=== PATIENT | female | born 1945 | race Caucasian/White ===

== ENCOUNTER 2018-12-31 20:01 | Emergency (ER) | payer OTHER, BC ==
--- NOTE | 2018-12-31 22:00 | RAD REPORT ---
EXAM DESCRIPTION: RAD - Hand Left 3 View - 12/31/2018 9:36 pm CLINICAL HISTORY: PAIN COMPARISON: <Comparisons> FINDINGS: Dislocation is noted involving the PIP joint of the fifth finger. No fracture is seen.
--- NOTE | 2018-12-31 22:02 | RAD REPORT ---
EXAM DESCRIPTION: RAD - Hand Right 3 View - 12/31/2018 9:34 pm CLINICAL HISTORY: PAIN COMPARISON: No comparisons FINDINGS: Radiocarpal arthritic changes are present. No fracture is identified.
[2018-12-31] MEDS ORDERED: LIDOCAINE 1% MPF 5 ML VIAL ONE (22:21)
[2018-12-31] MEDS ORDERED: BUPIVACAINE 0.5% PF 10 ML VIAL ONE (22:21)
[2018-12-31] MEDS ORDERED: TETANUS & DIPHTHERIA TOX,ADULT 0.5 ML VIAL ONE (23:47)
--- NOTE | 2018-12-31 23:54 | ER ---
Nurse's Notes [facility] Name: Mona Camarillo Age: 73 yrs Sex: Female : 1945 Arrival Date: 12/31/2018 Time: 20:07 Bed 28 Private MD: Diagnosis: Laceration without foreign body of left little finger without damage to nail;Fall on same level from slipping, tripping and stumbling;Dislocation of proximal interphalangeal joint of left little finger;Contusion of unspecified part of head Presentation: 12/31 20:15 Presenting complaint: Patient states: tripped and fell. pt c/o pain to left pinky ak1 finger and left hand. swelling noted to left pinky. Transition of care: patient was not received from another setting of care. Onset of symptoms was December 31, 2018. Risk Assessment: Do you want to hurt yourself or someone else? Patient reports no desire to harm self or others. Initial Sepsis Screen: Does the patient meet any 2 criteria? No. Patient's initial sepsis screen is negative. Does the patient have a suspected source of infection? No. Patient's initial sepsis screen is negative. Note pt in lobby restroom at time of name called. Care prior to arrival: None. 20:15 Method Of Arrival: Ambulatory ak1 20:15 Acuity: SIDNEY 3 ak1 Historical: - Allergies: 20:22 Codeine; ak1 - Home Meds: 20:22 Aspirin Oral [Active]; Plavix Oral [Active]; Xarelto oral oral [Active]; Metformin Oral ak1 [Active]; Metoprolol Tartrate Oral [Active]; Lisinopril Oral [Active]; pravastatin oral oral [Active]; - PMHx: 20:22 Cancer; Hypertension; ak1 - PSHx: 20:22 left knee replacement; Heart stents; rhinoplasty; Carpal Tunnel Repair; ak1 - Immunization history:: Adult Immunizations unknown. - Social history:: Smoking status: Patient/guardian denies using tobacco. - Ebola Screening: : No symptoms or risks identified at this time. Screenin:14 Abuse screen: Denies threats or abuse. Denies injuries from another. Nutritional ca1 screening: No deficits noted. Tuberculosis screening: No symptoms or risk factors identified. Fall Risk Fall in past 12 months (25 points). IV access (20 points). Assessment: 21:14 General: Appears in no apparent distress. comfortable, Behavior is calm, cooperative, ca1 appropriate for age. General: Pt c/o pain at left cheek, forehead. related to fall 09/19. Pt refuses pain meds at this time. Pt also reported that she takes Plavix, Xarelto and Aspirin. Notified provider. Pain: Complains of pain in left hand, left pinky Pain does not radiate. Pain currently is 7 out of 10 on a pain scale. Neuro: Level of Consciousness is awake, alert, obeys commands, Oriented to person, place, time, situation. Cardiovascular: Heart tones S1 S2 present Capillary refill < 3 seconds Patient's skin is warm and dry. Respiratory: Airway is patent Respiratory effort is even, unlabored, Respiratory pattern is regular, symmetrical, Breath sounds are clear bilaterally. GI: Abdomen is round non-distended, Bowel sounds present X 4 quads. Abd is soft and non tender X 4 quads. : No deficits noted. No signs and/or symptoms were reported regarding the genitourinary system. EENT: No deficits noted. No signs and/or symptoms were reported regarding the EENT system. Derm: Skin is intact, is healthy with good turgor, Skin is pink, warm \T\ dry. Musculoskeletal: Circulation, motion, and sensation intact. Capillary refill < 3 seconds, Range of motion: intact in all extremities. 21:55 Reassessment: Patient appears in no apparent distress at this time. Patient and/or ca1 family updated on plan of care and expected duration. Pain level reassessed. Patient is alert, oriented x 3, equal unlabored respirations, skin warm/dry/pink. 21:56 Reassessment: Notified provide re laceration on L little finger. ca1 22:50 Reassessment: Patient appears in no apparent distress at this time. Patient and/or ca1 family updated on plan of care and expected duration. Pain level reassessed. Patient is alert, oriented x 3, equal unlabored respirations, skin warm/dry/pink. 23:55 Reassessment: Patient appears in no apparent distress at this time. Patient and/or ca1 family updated on plan of care and expected duration. Pain level reassessed. Patient is alert, oriented x 3, equal unlabored respirations, skin warm/dry/pink. Vital Signs: 20:22 BP 132 / 65; Pulse 77; Resp 16; Temp 98; Pulse Ox 98% ; Weight 88.9 kg (R); Height 5 ak1 ft. 0 in. (152.40 cm) (R); Pain 5/10; 21:14 BP 125 / 59; Pulse 72; Resp 16 S; Pulse Ox 99% on R/A; ca1 21:55 BP 122 / 59; Pulse 70; Resp 16 S; Pulse Ox 99% on R/A; ca1 22:30 BP 120 / 57; Pulse 70; Resp 16 S; Pulse Ox 99% on R/A; ca1 23:24 BP 119 / 74; Pulse 72; Resp 15 S; Pulse Ox 99% on R/A; ca1 01/01 00:08 BP 112 / 55; Pulse 71; Resp 17 S; Temp 98(O); Pulse Ox 98% on R/A; ca1 12/31 20:22 Body Mass Index 38.28 (88.90 kg, 152.40 cm) ak1 ED Course: 12/31 20:07 Patient arrived in ED. es 20:20 Triage completed. ak1 20:22 Arm band placed on Patient placed in waiting room, Patient notified of wait time. ak1 20:25 Castro Michel PA is PHCP. cp 20:25 Jogre Narvaez MD is Attending Physician. cp 20:29 Sarah Herring, TOBI is Primary Nurse. ca1 21:14 Patient has correct armband on for positive identification. Bed in low position. Call ca1 light in reach. Side rails up X2. Pulse ox on. NIBP on. Warm blanket given. 21:14 No provider procedures requiring assistance completed. ca1 21:33 CT Head C Spine In Process Unspecified. EDMS 21:34 XRAY Hand RIGHT 3 View In Process Unspecified. EDMS 21:34 XRAY Hand LEFT 3 View In Process Unspecified. EDMS 21:55 Wound care: to laceration located on palmar aspect of middle phalanx of left little ca1 finger was cleaned with Betadine, irrigated with normal saline, ice pack applied. Patient tolerated well. 23:00 Assist provider with laceration repair on palmar aspect of middle phalanx of left ca1 little finger that was 2.5 cm. or less using sutures. Set up tray. Performed by Castro GERONIMO Dressed with 4X4s, Patient tolerated well. Assist provider with nerve block (digital) of left hand Set up for procedure. Performed by Castro GERONIMO Patient tolerated well. 23:45 X-ray completed. Portable x-ray completed in exam room. Patient tolerated procedure kw well. 23:47 XRAY Hand LEFT 2 View In Process Unspecified. EDMS 23:51 Gaudencio Moreau MD is Referral Physician. cirilo 01/01 00:00 Aluminum finger splint applied to dorsal aspect of distal phalanx of left little ca1 finger, dorsal aspect of middle phalanx of left little finger, dorsal aspect of proximal phalanx of left little finger, dorsum of left hand, palmar aspect of distal phalanx of left little finger, palmar aspect of middle phalanx of left little finger, palmar aspect of proximal phalanx of left little finger, inner aspect of left palm and left little fingernail. 00:06 Patient did not have IV access during this emergency room visit. ca1 Administered Medications: 12/31 23:10 Drug: Lidocaine (1 %) 5 ml {Note: by PA. Quan} Volume: 5 ml; Route: Infiltration;ca1 23:11 Drug: Marcaine (0.5 %) 5 ml {Note: PA. Quan} Volume: 10 ml; Route: Infiltration; ca1 23:15 Drug: Tetanus-Diphtheria Toxoid Adult 0.5 ml {Nail Specialist: [employer]. Exp: ca1 09/01/2020. Lot #: [id number]. } Route: IM; Site: left deltoid; 01/01 00:04 Follow up: Response: No adverse reaction ca1 Output: 12/31 20:50 Urine: 120ml; Total: 120ml. ca1 Outcome: 23:53 Discharge ordered by . cp 01/01 00:24 Discharged to home via wheelchair. ca1 Condition: stable Discharge instructions given to patient, Instructed on discharge instructions, follow up and referral plans. wound care, Demonstrated understanding of instructions, follow-up care, medications. 00:25 Patient left the ED. ca1 Signatures: Dispatcher [employer] EDMS Ava Flowers Kimberlee kw Krenek, Amber, RN RN ak1 Castro Michel PA PA cp Acob, Cheryl, RN RN ca1 Corrections: (The following items were deleted from the chart) 12/31 20: 20:15 Acuity: SIDNEY 4 ak1 ak1 01/01 00:01 00:01 Tetanus-Diphtheria Toxoid Adult 0.5 ml IM in left deltoid Nail Specialist: APS [employer] Lot: [id number] Exp: 09/01/2020 ca1
--- NOTE | 2018-12-31 23:54 | EDPHYS ---
Physician Documentation [facility] Name: Mona Camarillo Age: 73 yrs Sex: Female : 1945 Arrival Date: 12/31/2018 Time: 20:07 Bed 28 Private MD: ED Physician Jorge Narvaez HPI: 12/31 21:10 This 73 yrs old Female presents to ER via Ambulatory with complaints of fall. cp 21:10 Details of fall: The patient fell from an upright position, while walking, and struck a cp concrete surface. 21:10 Onset: The symptoms/episode began/occurred just prior to arrival. Associated injuries: cp The patient sustained injury to the head, contusion, right hand and left hand. Patient reports trip and fall causing her to injure both hands and strike face against ground. Denies LOC. Patient reports she takes Xeralto. Historical: - Allergies: 20:22 Codeine; ak1 - Home Meds: 20:22 Aspirin Oral [Active]; Plavix Oral [Active]; Xarelto oral oral [Active]; Metformin Oral ak1 [Active]; Metoprolol Tartrate Oral [Active]; Lisinopril Oral [Active]; pravastatin oral oral [Active]; - PMHx: 20:22 Cancer; Hypertension; ak1 - PSHx: 20:22 left knee replacement; Heart stents; rhinoplasty; Carpal Tunnel Repair; ak1 - Immunization history:: Adult Immunizations unknown. - Social history:: Smoking status: Patient/guardian denies using tobacco. - Ebola Screening: : No symptoms or risks identified at this time. ROS: 21:20 Constitutional: Negative for body aches, chills, fever, poor PO intake. cp 21:20 Neck: Negative for stiffness. cp 21:20 Cardiovascular: Negative for chest pain, palpitations. 21:20 Respiratory: Negative for cough, shortness of breath, wheezing. 21:20 Abdomen/GI: Negative for nausea and vomiting. 21:20 MS/extremity: Positive for ecchymosis, pain, swelling, tenderness, of the right hand and left hand. 21:20 Neuro: Negative for altered mental status, headache, loss of consciousness, weakness. 21:20 All other systems are negative. Exam: 21:30 Constitutional: The patient appears in no acute distress, alert, awake, cp non-diaphoretic, non-toxic, well developed, well nourished. 21:30 Head/face: Noted is abrasion(s), that are mild, of the left zygomatic area. cp 21:30 Eyes: Periorbital structures: appear normal, Pupils: equal, round, and reactive to light and accomodation, Extraocular movements: intact throughout, Conjunctiva: normal, no exudate, no injection, Lids and lashes: appear normal, bilaterally. 21:30 ENT: External ear(s): are unremarkable, Ear canal(s): are normal, clear, TM's: dullness, bilaterally, Nose: is normal, Mouth: Lips: moist, Oral mucosa: pink and intact, moist, Posterior pharynx: is normal, airway is patent, no erythema, no exudate. 21:30 Neck: C-spine: vertebral tenderness, is not appreciated, crepitus, is not appreciated, ROM/movement: is normal, is supple, without pain, no range of motions limitations, no meningismus, no nuchal rigidity. 21:30 Chest/axilla: Inspection: normal, Palpation: is normal, no crepitus, no tenderness. 21:30 Cardiovascular: Rate: normal, Rhythm: regular, Edema: is not appreciated, JVD: is not appreciated. 21:30 Respiratory: the patient does not display signs of respiratory distress, Respirations: normal, no use of accessory muscles, no retractions, no splinting, no tachypnea, labored breathing, is not present, Breath sounds: are clear throughout, no decreased breath sounds, no stridor, no wheezing. 21:30 Abdomen/GI: Inspection: abdomen appears normal, Palpation: abdomen is soft and non-tender, in all quadrants. 21:30 Back: pain, is absent, ROM is normal. 21:30 Skin: injury, laceration(s), of the palmar aspect of middle phalanx of left little finger, that can be described as clean, linear, with mild bleeding, noted deformity of left PIP joint small finger. 21:30 Neuro: Orientation: to person, place \T\ time. Mentation: is normal, Cerebellar function: is grossly normal, Motor: moves all fours, strength is normal, Sensation: is normal. Vital Signs: 20:22 BP 132 / 65; Pulse 77; Resp 16; Temp 98; Pulse Ox 98% ; Weight 88.9 kg (R); Height 5 ak1 ft. 0 in. (152.40 cm) (R); Pain 5/10; 21:14 BP 125 / 59; Pulse 72; Resp 16 S; Pulse Ox 99% on R/A; ca1 21:55 BP 122 / 59; Pulse 70; Resp 16 S; Pulse Ox 99% on R/A; ca1 22:30 BP 120 / 57; Pulse 70; Resp 16 S; Pulse Ox 99% on R/A; ca1 23:24 BP 119 / 74; Pulse 72; Resp 15 S; Pulse Ox 99% on R/A; ca1 01/01 00:08 BP 112 / 55; Pulse 71; Resp 17 S; Temp 98(O); Pulse Ox 98% on R/A; ca1 12/31 20:22 Body Mass Index 38.28 (88.90 kg, 152.40 cm) ak1 Procedures: 12/31 23:50 Reduction: of the PIP joint left small finger, using manipulation, Immobilized with cp sugar tong finger splint. Patient tolerated well. Post reduction film - reveals improved alignment. Laceration: 23:50 Wound Repair of 2.5cm ( 1.0in ) subcutaneous laceration to palmar aspect of middle cp phalanx of left little finger. Linear shaped.. Distal neuro/vascular/tendon intact. Anesthesia: Digital block administered with 6 mls of Lido/Marcaine. Wound prep: Moderate cleansing by me, Wound irrigation by me. Skin closed with 5 5-0 Prolene using interrupted sutures and sterile technique. Dressed with Bacitracin, tube gauze. Patient tolerated well. MDM: 21:02 Patient medically screened. cp 22:00 Differential diagnosis: closed head injury, fracture, multiple trauma. cp 23:49 Test interpretation: by ED physician or midlevel provider: repeat xrays of left hand cp show relocation of proximal interphalangeal joint left small finger. 23:52 Data reviewed: vital signs, nurses notes, radiologic studies, CT scan, plain films, and cp as a result, I will discharge patient. 23:53 Counseling: I had a detailed discussion with the patient and/or guardian regarding: the cp historical points, exam findings, and any diagnostic results supporting the discharge/admit diagnosis, radiology results, the need for outpatient follow up, a hand specialist, to return to the emergency department if symptoms worsen or persist or if there are any questions or concerns that arise at home. 23:53 Response to treatment: the patient's symptoms have markedly improved after treatment, cp and as a result, I will discharge patient. 12/31 21:02 Order name: CT Head C Spine cp 12/31 21:02 Order name: XRAY Hand RIGHT 3 View; Complete Time: 22:05 cp 12/31 21:02 Order name: XRAY Hand LEFT 3 View; Complete Time: 22:05 cp 12/31 23:10 Order name: XRAY Hand LEFT 2 View cp 12/31 21:24 Order name: Wound Care: please clean and irrigate wounds; Complete Time: 21:56 cp 12/31 22:05 Order name: Dressing - Wound; Complete Time: 22:06 cp 12/31 22:05 Order name: Gloves, Sterile; Complete Time: 22:06 cp 12/31 22:05 Order name: Setup Suture Tray; Complete Time: 22:06 cp 12/31 23:10 Order name: Wound dressing; Complete Time: 00:00 cp 12/31 23:10 Order name: Finger Splint; Complete Time: 00:00 cp Administered Medications: 23:10 Drug: Lidocaine (1 %) 5 ml {Note: by Castro Michel PA.} Volume: 5 ml; Route: Infiltration;ca1 23:11 Drug: Marcaine (0.5 %) 5 ml {Note: Castro Michel, PA.} Volume: 10 ml; Route: Infiltration; ca1 23:15 Drug: Tetanus-Diphtheria Toxoid Adult 0.5 ml {Parking Worker: [employer]. Exp: ca1 09/01/2020. Lot #: [id number]. } Route: IM; Site: left deltoid; 01/01 00:04 Follow up: Response: No adverse reaction ca1 Disposition: 01:00 Chart complete. cp 04:18 Co-signature as Attending Physician, Jorge Narvaez MD I agree with the assessment and tw4 plan of care. Disposition: 12/31/18 23:53 Discharged to Home. Impression: Laceration without foreign body of left little finger without damage to nail, Fall on same level from slipping, tripping and stumbling, Dislocation of proximal interphalangeal joint of left little finger, Contusion of unspecified part of head. - Condition is Stable. - Discharge Instructions: Finger or Thumb Dislocation, Head Injury, Adult, Laceration Care, Adult. - Medication Reconciliation Form, Thank You Letter, Antibiotic Education, Prescription Opioid Use form. - Follow up: Gaudencio Moreau MD; When: 2 - 3 days; Reason: finger dislocation. - Problem is new. - Symptoms have improved. Signatures: Dispatcher [employer] EDMS Bernice Voss RN RN ak1 Castro Michel PA PA cp Wadley, Terrence, MD MD tw4 Sarah Herring RN RN ca1 Corrections: (The following items were deleted from the chart) 12/31 23:54 23:53 12/31/2018 23:53 Discharged to Home. Impression: Laceration without foreign body cp of left little finger without damage to nail; Fall on same level from slipping, tripping and stumbling; Dislocation of proximal interphalangeal joint of left little finger. Condition is Stable. Forms are Medication Reconciliation Form, Thank You Letter, Antibiotic Education, Prescription Opioid Use. Follow up: Gaudencio Moreau; When: 2 - 3 days; Reason: finger dislocation. Problem is new. Symptoms have improved. cp 01/01 00:25 12/31 23:54 12/31/2018 23:53 Discharged to Home. Impression: Laceration without foreign ca1 body of left little finger without damage to nail; Fall on same level from slipping, tripping and stumbling; Dislocation of proximal interphalangeal joint of left little finger; Contusion of unspecified part of head. Condition is Stable. Discharge Instructions: Finger or Thumb Dislocation, Head Injury, Adult, Laceration Care, Adult. Forms are Medication Reconciliation Form, Thank You Letter, Antibiotic Education, Prescription Opioid Use. Follow up: Gaudencio Moreau; When: 2 - 3 days; Reason: finger dislocation. Problem is new. Symptoms have improved. cp
[2019-01-01 02:34] VITALS: TEMP 98
[2019-01-01 02:42] VITALS: BP 112/55; O2SAT 98
--- NOTE | 2019-01-01 08:09 | RAD REPORT ---
EXAM DESCRIPTION: RAD - Hand Left 2 View - 12/31/2018 11:46 pm CLINICAL HISTORY: finger relocation Pain and swelling COMPARISON: Hand Left 3 View dated 12/31/2018 FINDINGS: The previously noted dislocation of the PIP joint of the fifth finger has been reduced. Th e bones are osteopenic. Small bony fragment seen adjacent to the distal aspect of the proximal phalan x the fifth finger may represent a small avulsion fracture.
--- NOTE | 2019-01-01 11:04 | RAD REPORT ---
EXAM DESCRIPTION: Head C Spine Mpr Wo Con CLINICAL HISTORY: 73 years Female, fall COMPARISON: None. TECHNIQUE: 1. Head CT without contrast: 5 mm axial images were obtained along with 3 mm coronal and sagittal reformatted images. 2. CT scan cervical spine without contrast: 2 mm axial images were obtained along with 2 mm coronal a nd sagittal reformatted images. This exam was performed according to our departmental dose-optimization program, which includes autom ated exposure control, adjustment of the mA and/or kV according to patient size and/or use of iterati ve reconstruction technique. FINDINGS: HEAD CT: No acute abnormal extracerebral fluid collections are demonstrated. The cortical sulci, ventricles and cisterns are within normal limits. There are no areas of altered attenuation to suggest acute hemorrhage, infarction, or mass lesion. There is atherosclerosis about the carotid arteries and vertebral arteries bilaterally. There is evidence of previous sinus surgery. There are mucoceles identified involving the right mid and posterior ethmoid air cells and the left p osterior ethmoid air cell. The mastoid air cells are clear. CT CERVICAL SPINE: BONY STRUCTURES: C1: No fracture or subluxation. There is severe degenerative changes about the atlantodental articul ation. There are peridental soft tissue calcifications suggestive of calcium pyrophosphate deposition diseas e. C2: No fracture or subluxation. C3: No fracture or subluxation. There is mild facet arthropathy on the left at C3 or C4. C4: No fracture or subluxation. There is mild bilateral facet arthropathy at C4-C5. C5: No fracture or subluxation. There is severe degenerative disc disease and mild bilateral facet a rthropathy at C5-C6. C6: No fracture or subluxation. There is severe degenerative disc disease at C6-C7. C7: No fracture or subluxation. T1: No fracture or subluxation. There is a hemangioma within the T1 vertebral body which measures 1. 0 x 1.2 cm. SOFT TISSUES: There is gross enlargement of the right thyroid lobe. A mass lesion is suspected. Further characteriz ation with a nonemergent ultrasound recommended. There is atherosclerotic disease about the right carotid artery. LUNG APICES: Unremarkable. IMPRESSION: 1. HEAD CT: No acute intracranial abnormality. Paranasal sinus disease. 2. CT CERVICAL SPINE: No fracture. Degenerative changes. Right thyroid lobe enlargement, probable mas s. Thyroid ultrasound evaluation recommended. Electronically signed by: Manish Mcnamara MD 12/31/2018 9:51 PM CDT Due to temporary technical issues with the PACS/Fluency reporting system, reports are being signed by the in house radiologist as a courtesy to ensure prompt reporting. The interpreting radiologist is f ully responsible for the content of the report.
== END 2019-01-01 00:25 | disposition home or self-care (01) ==
LOC: ER 20:01
PROC: 0JQK0ZZ Repair Left Hand Subcutaneous Tissue and Fascia, Open Approach (ICD-10-PCS; principal; 2019-01-01)
PROC: 0RSXXZZ Reposition Left Finger Phalangeal Joint, External Approach (ICD-10-PCS; 2019-01-01)
DX: S61.217A Laceration without foreign body of left little finger without damage to nail, initial encounter (principal); S63.287A Dislocation of proximal interphalangeal joint of left little finger, initial encounter; S00.93XA Contusion of unspecified part of head, initial encounter; W01.198A Fall on same level from slipping, tripping and stumbling with subsequent striking against other object, initial encounter; Y93.9 Activity, unspecified; Y92.9 Unspecified place or not applicable; Z23 Encounter for immunization; Z79.01 Long term (current) use of anticoagulants; Z79.82 Long term (current) use of aspirin; Z88.5 Allergy status to narcotic agent; Z95.818 Presence of other cardiac implants and grafts; I10 Essential (primary) hypertension
CPT/HCPCS: 64450; 70450; 72125; 90471; 90714; 99284

== ENCOUNTER 2020-01-03 15:06 | Inpatient (IN) | payer OTHER, BC ==
--- OUTSIDE RECORDS SUMMARY | 2020-01-03 15:08 | XMS REPORT | Clinical Summary ---
:1945 Author Organization [facility] Address [address] [place] [address] Care Team Providers Name Role Phone Katy Villalta DO Primary Care Provider Allergies Active Allergy Reactions Severity Noted Date Comments Codeine Sulfate High 06/29/2015 Headache, Na usea/Vomiting Pentazocine Lactate GI Intolerance Low 08/06/2018 Medications Medication Sig Dispensed Refills Start Date End Date Status metFORMIN (GLUMETZA) 500 Take 500 mg 0 Active mg 24 hr tablet by mouth. lisinopril Take 5 mg by 0 Active (PRINIVIL,ZESTRIL) 5 mg mouth. tablet metoprolol tartrate Take 25 mg by 0 Active (LOPRESSOR) 25 mg tablet mouth. clopidogrel (PLAVIX) 75 Take 75 mg by 0 Active mg tablet mouth. pravastatin (PRAVACHOL) Take 10 mg by 0 Active 10 MG tablet mouth. niacin 500 MG tablet Take 500 mg 0 Active by mouth. aspirin (ECOTRIN) 81 MG Take 81 mg by 0 Active enteric coated tablet mouth. coenzyme [id number] E Take 50 mg by 0 Active 50-5 mg-unit capsule mouth. docosahexanoic acid/epa Take by 0 Active (FISH OIL ORAL) mouth. rivaroxaban (XARELTO) 20 Take 20 mg by 0 12/31/2018 04/30/2019 mg tablet mouth. Active Problems Not on file Encounters Date Type Specialty Care Team Description 01/02/2020 Office Visit Orthopedic Surgery Shun Gibbons, Chronic b ilateral low back pain without sciatica (Primary Dx); Jesus Rosa MD Spondylolist hesis of lumbar region; Degeneration of lumbar intervertebral disc 01/02/2020 Orders Only Orthopedic Surgery Shun Gibbons Chronic b ilateral low back pain without sciatica (Primary Dx); Jesus Rosa MD Spondylolist hesis of lumbar region; Degeneration of lumbar intervertebral disc 01/02/2020 Travel 03/12/2019 Office Visit Orthopedic Surgery Duke Bashir isplaced fracture MD Gomez of middle phala nx of left little finger w ith routine healing, subseq uent encounter (Prim magalis Dx) 02/12/2019 Office Visit Orthopedic Surgery Duke Bashir isplaced fracture MD [place] of middle ph[place] nx of left little finger, initial encounter (Prim magalis Dx) after 01/02/2019 Family History Medical History Relation Name Comments Diabetes Father Ed ale Heart attack Father Ed ale Heart disease Father Ed ale Cancer Mother Flores Aguirre Relation Name Status Comments Father Ed ale Mother Flores Aguirre Social History Tobacco Use Types Packs/Day Years Used Date Never Smoker 0 0 Smokeless Tobacco: Never Used Alcohol Use Drinks/Week oz/Week Comments Not Currently 1 Glasses of wine 1.0 Sex Assigned at Date Recorded Not on file Job Start Date Occupation Industry Not on file Not on file Not on file Travel History Travel Start Travel End No recent travel history available. COVID-19 Exposure Response Date Recorded In the last month, have you been in contact with No / Unsure 01/02/2020 10:42 AM CDT someone who was confirmed or suspected to have Coronavirus / COVID-19? Last Filed Vital Signs Vital Sign Reading Time Taken Comments Blood Pressure - - Pulse - - Temperature - - Respiratory Rate - - Oxygen Saturation - - Inhaled Oxygen Concentration - - Weight 89.8 kg (198 lb) 02/12/2019 4:32 PM CDT Height 152.4 cm (5') 02/12/2019 4:32 PM CDT Body Mass Index 38.67 02/12/2019 4:32 PM CDT Plan of Treatment Health Maintenance Due Date Last Done Comments DIABETIC RETINAL EYE EXAM 1945 DIABETIC FOOT EXAM 1956 BREAST CANCER SCREENING 1996 COLONOSCOPY SCREENING 1996 SHINGLES VACCINES (#1) 1996 65+ PNEUMOCOCCAL VACCINE (1 of 2 - PCV13) 2011 INFLUENZA VACCINE 01/11/2020 Procedures Procedure Name Priority Date/Time Associated Diagnosis Comme nts XR LUMBAR SPINE Routine 01/02/2020 11:08 AM Low back pain, Res ults for this COMPLETE 4+ VW CDT unspecified back procedure are in pain laterality, the results unspecified section. chronicity, unspecified whether sciatica present XR FINGER 2+ VW Routine 03/12/2019 1:49 PM Closed displaced R esults for this LEFT CDT fracture of middle procedure are in phalanx of left the results little finger with section. routine healing, subsequent encounter XR HAND 3+ VW LEFT Routine 02/12/2019 4:54 PM Finger pain, le ft Results for this CDT procedure are i n the results section. after 01/02/2019 Results XR Lumbar Spine Complete 4+ Vw (01/02/2020 11:08 AM CDT) Specimen Narrative Performed At This result has an attachment that is no t available. X-ray lumbar spine multiple views [facility] Multilevel lumbar disc degeneration Degenerative grade 1 spondylolisthesis at the L4-5 and at the L5-S1. Minimally mobile with dynamic x-rays. No fractures or bony erosions visualized on x-rays. Performing Organization Address [facility] [employer] Phone Number [employer] [address] [place] [address] XR Finger 2+ Vw Left (03/12/2019 1:49 PM CDT) Specimen Narrative Performed At This result has an attachment that is no t available. X-rays 3 views of the left small finger showed a healing fracture at the [facility] middle phalanx. Performing Organization Address [facility]/[employer] Phone Number [employer] [address] [place] [address] XR Hand 3+ Vw Left (02/12/2019 4:54 PM CDT) Specimen Narrative Performed At This result has an attachment that is no t available. X-rays 3 views of the left hand show a small finger middle phalangeal base [facility] volar avulsion fracture. Arthritis noted in the inte rphalangeal joints throughout. 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
--- OUTSIDE RECORDS SUMMARY | 2020-01-03 15:10 | XMS REPORT | Continuity of Care Document ---
:1945 Author Organization [facility] t Address [address] [place] [address] Dr. [address]. [address] [place] [address] Care Team Providers Name Role Phone Ambar DAVIS Katy Primary Care Physician Moe Portillo MD Attending Clinician Paul PT, T Attending Clinician Efe SIM Attending Clinician Sailaja PT Attending Clinician Brooks SIM, Nathan Attending Clinician Anna SIM Attending Clinician Mckay SIM, Gomez Attending Clinician Payers Payer Name Policy Policy Number Effective Expiration Source Type Date Date MEDICAREMEDICARE PART xxxxxxxxxxx 2011 Jose Miguel Thomas AND 00:00:00 [place] Bxxxxxxxxxxx1- [place] [place] COMMERCIALBCBS xxxxxxxxxxxx 2014 Walter corea MEDICARE 00:00:00 Caodaism SUPPLEMENTxxxxxxxxxxx [facility]EMEDIC[facility] PART [id number] 2011 MD Guzman Thomas AND 00:00:00 [id number] 2011- [phone] [place], [place] [place] NON [id number] 2014 MD Hinds CONTRACTEDBCBS NON 00:00:00 [id number] 2015-PresentOthe r Problems Condition Condition Condition Status Onset Resolution Last Treating Co mments Source Name Details Category Date Date Treatment Clinician Date Chronic Chronic Disease Active 2018-06 venous venous 07-17 Anderso insufficie insufficie 00:00: n ncy ncy 00 Lipedema Lipedema Disease Active 2018-06 2-05 Anderso 00:00: n 00 Lymphedema Lymphedema Disease Active 2018-06 M D , not , not 2 Anderso elsewhere elsewhere 00:00: n classified classified 00 Abnormalit Abnormalit Disease Active 2018-06 M D y of gait y of gait 07-17 Romeo rso 00:00: n 00 Generalize Generalize Disease Active 2018-06 M D d muscle d muscle 07-17 Fran o weakness weakness 00:00: n 00 Parkinson' Parkinson' Disease Active M D s disease s disease 6-26 Romeo rso 00:00: n 00 Deep vein Deep vein Disease Active thrombosis thrombosis 8-10 An derso of right of right 00:00: n lower lower 00 extremity extremity Nontoxic Nontoxic Disease Active multinodul multinodul 8-05 An derso ar goiter ar goiter 00:00: n 00 Fecal Fecal Disease Active incontinen incontinen 7-27 An derso ce with ce with 00:00: n fecal fecal 00 urgency urgency Thyroid Thyroid Disease Active nodule nodule 5-12 Anderso 00:00: n 00 Pulmonary Pulmonary Disease Active embolism embolism 4-15 Fran o 00:00: n 00 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 00 Obesity Obesity Disease Active 3-29 Anderso 00:00: n 00 Osteoporos Osteoporos Disease Active M D is is Anderso n Hyperlipid Hyperlipid Disease Active M D emia emia Anderso n Diverticul Diverticul Disease Active M D ar disease ar disease An derso n Diabetes Diabetes Disease Active Overview: mellitus mellitus PRE Fran o DIBETES n Coronary Coronary Disease Active arterioscl arterioscl An derso erosis erosis n 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 An derso n Allergies, Adverse Reactions, Alerts Allergy Allergy Status Severity Reaction(s) Onset Inactive Treating Comm ents Source Name Type Date Date Clinician Pentazoc Propensi Active GI [place] n ine ty to Intolerance 2-25 Metho di Lactate adverse 00:00: st reaction 00 s to drug Codeine Propensi Active Severe Headache, [place] Sulfate ty to 1-18 Nausea/Vo Method i adverse 00:00: miting st reaction 00 s to drug Family History Family Member Diagnosis Comments Start Date Stop Date Source Natural father Diabetes [facility] Natural father Heart attack [place] [facility] Natural father Heart disease [place] [facility] Natural mother Cancer [facility]odist Natural mother -Breast cancer Social History Social Habit Start Date Stop Date Quantity Comments Source Exposure to Not sure [place] [facility] dist SARS-CoV-2 (event) Sex Assigned At MD Peters on Tobacco use and 2019-05-21 2019-05-21 Never used MD Peters on exposure 00:00:00 00:00:00 Alcohol intake 2019-05-21 2019-05-21 Current drinker MD Tanya swift 00:00:00 00:00:00 of alcohol (finding) Alcohol Comment 2015-10-22 2015-10-22 social MD Peters on 00:00:00 00:00:00 Smoking Status Start Date Stop Date Source Never smoker MD Hinds Medications Ordered Filled Start Stop Current Ordering Indication Dosage Frequency Signature Comments Components Source Medication Medication Date Date Medication? Clinician (SIG) Name Name prochlorper 2020-0 Yes 5mg Take 5 mg M D azine -06 by mouth Anderso (COMPAZINE) 20:10: every 6 n 5 mg tablet 47 (six) hours as needed for nausea or vomiting. Reported on 09/06/2016 coenzyme 2020-0 Yes 50mg Take 50 mg MD [id number] 1-06 by mouth Romeo rso E 50-5 20:10: daily. n mg-unit cap 47 loperamide 2019-0 Yes 2mg Take 2 mg MD (IMODIUM) 2 1-06 by mouth 4 An derso mg/10 mL 20:10: (four) n solution 47 times a day as needed. lisinopril 2020-0 Yes 5mg Take 5 mg MD (PRINIVIL,Z 1-06 by mouth Romeo rso ESTRIL) 5 20:10: daily. n mg tablet 47 metFORMIN 2020-0 Yes 500mg Take 500 MD (GLUMETZA) 1-06 mg by Anderso 500 MG 20:10: mouth n (MOD) 24 hr 47 twice tablet daily. Reported on 09/06/2016 niacin 500 2020-0 Yes 500mg Take 500 MD mg tablet 1-06 mg by Anderso 20:10: mouth n 47 daily. LACTOBACILL 2020-0 Yes 1{capsu Take 1 M D US 1-06 le} capsule by Anderso ACIDOPHILUS 20:10: mouth n (PROBIOTIC 47 daily. ORAL) ondansetron 2020-0 Yes 4mg Take 4 mg M D (ZOFRAN) 4 1-06 by mouth Memo so mg tablet 20:10: every 8 n 47 (eight) hours as needed for nausea or vomiting. Reported on 09/06/2016 metoprolol 2020-0 Yes 25mg Take 25 mg M D tartrate 1-06 by mouth Anderso (LOPRESSOR) 20:10: daily. n 25 mg 47 tablet pravastatin 2020-0 Yes 10mg Take 10 mg MD (PRAVACHOL) 1-06 by mouth Romeo rso 10 mg 20:10: daily. n tablet 47 clopidogrel 2020-0 Yes 75mg Take 75 mg MD (PLAVIX) 75 1-06 by mouth Romeo rso mg tablet 20:10: daily. n 47 aspirin 81 2020-0 Yes 81mg Take 81 mg M D mg EC 1-06 by mouth. Anderso tablet 20:10: n 47 rivaroxaban 2018-06 2020- No Pulmonary 20mg Take 1 MD (XARELTO) 2-10 12-10 embolism, tablet (20 Anderso 20 mg 00:00: 05:59 not mg) by n tablet 00 :00 otherwise mouth specified daily. rivaroxaban 2019- No Pulmonary 20mg Take 1 MD (XARELTO) 9-18 12-10 embolism, tablet (20 Anderso 20 mg 00:00: 00:00 not mg) by n tablet 00 :00 otherwise mouth specified daily. metFORMIN 2018-0 Yes 500mg Take 500 [address]on (GLUMETZA) 9-09 mg by Methodi 500 mg 24 11:05: mouth. st hr tablet 17 lisinopril 2019-0 Yes 5mg Take 5 mg [place] (PRINIVIL,Z 02-18 by mouth. Met hodi ESTRIL) 5 11:05: st mg tablet 17 metoprolol Yes 25mg Take 25 mg [place] tartrate 02-18 by mouth. Method i (LOPRESSOR) 11:05: st 25 mg 17 tablet clopidogrel Yes 75mg Take 75 mg Beth (PLAVIX) 75 02-18 by mouth. Met hodi mg tablet 11:05: st 17 pravastatin Yes 10mg Take 10 mg Beth (PRAVACHOL) 02-18 by mouth. Met hodi 10 MG 11:05: st tablet 17 niacin 500 Yes 500mg Take 500 [place] MG tablet 02-18 mg by Methodi 11:05: mouth. st 17 aspirin Yes 81mg Take 81 mg [place] (ECOTRIN) 02-18 by mouth. Metho di 81 MG 11:05: st enteric 17 coated tablet coenzyme Yes 50mg Take 50 mg Walter ston [id number] 02-18 by mouth. Met hodi E 50-5 11:05: st mg-unit 17 capsule docosahexan Yes Take by Walter ston oic 02-18 mouth. Methodi acid/epa 11:05: st (FISH OIL 17 ORAL) rivaroxaban 2018- No 20mg Take 20 mg Kirit (XARELTO) 12-31 by mouth. Meth bg 20 mg 00:00: 23:59 st tablet 00 :00 rivaroxaban 2018- No Pulmonary 20mg Take 1 MD (XARELSHABNAM) 12-31 embolism, tablet (20 Anderso 20 mg 00:00: 00:00 not mg) by n tablet 00 :00 otherwise mouth specified daily for 120 days. peg Yes Colonoscopy Use as 3350-electr 2-18 planned directed A nderso olytes 00:00: by n (LANCE) 00 ordering [id number] provider. .74 g solution Vital Signs Vital Name Observation Time Observation Value Comments Source Systolic blood 2019-07-10 16:39:49 119 mm[Hg] And bertha pressure Diastolic blood 2019-07-10 16:39:49 77 mm[Hg] MD Tanya swift pressure Heart rate 2019-07-10 16:39:49 65 /min MD Memo gatica Oxygen saturation in 2019-07-10 16:39:49 98 /min MD Hinds Arterial blood by Pulse oximetry Body height 2019-07-10 16:30:00 152.5 cm MD Memo gatica Body weight 2019-07-10 16:30:00 93.8 kg MD Memo gatica BMI 2019-07-10 16:30:00 40.33 kg/m2 MD Memo gatica Body temperature 2019-06-17 19:34:36 36.89 Tere MD Martha garcia Respiratory rate 2019-06-17 19:34:36 18 /min MD Martha garcia Body height 2019-02-12 16:32:00 152.4 cm Kirit Ball Body weight 2019-02-12 16:32:00 89.812 kg Kirit Ball BMI 2019-02-12 16:32:00 38.67 kg/m2 Kirit Ball Procedures Procedure Date / Time Performing Clinician Source Performed XR LUMBAR SPINE COMPLETE 4+ 2020-01-02 11:08:16 Neftali Portillo VW M[address] CHEST ABDOMEN PELVIS W 2019-05-21 17:48:00 Andreas Guy CONTRAST POC BLOOD UREA NITROGEN + 2019-05-21 16:32:00 Provider, Unknown MD Hinds CREATININE COMPLETE BLOOD COUNT W/ 2019-05-21 15:48:00 Andreas Guy MD DIFFERENTIAL COMPREHENSIVE METABOLIC 2019-05-21 15:48:00 Andreas Guy MD PANEL MAGNESIUM LEVEL 2019-05-21 15:48:00 Andreas Guy MD [facility] PHOSPHORUS LEVEL 2019-05-21 15:48:00 Andreas Guy MD Romeo rson LACTATE DEHYDROGENASE 2019-05-21 15:48:00 Andreas Guy MD CARCINOEMBRYONIC ANTIGEN 2019-05-21 15:48:00 Andreas Guy MD D DIMER 2019-05-21 15:48:00 Hector Castillo MD Results CBC 2019-05-21 15:48:00 Andreas Guy MD Memo [facility] MANUAL DIFFERENTIAL 2019-05-21 15:48:00 Andreas Guy MD nderson GLUCOSE LEVEL 2019-05-21 15:48:00 Andreas Guy MD [facility] BLOOD UREA NITROGEN 2019-05-21 15:48:00 Andreas Guy MD nderson ELECTROLYTE PANEL 2019-05-21 15:48:00 Andreas Guy MD And erson SERUM CREATININE 2019-05-21 15:48:00 Andreas Guy MD Romeo rson .GLOMERULAR FILTRATION RATE 2019-05-21 15:48:00 Andreas Guy MD CALCIUM LEVEL TOTAL 2019-05-21 15:48:00 Andreas Guy MD nderson ALBUMIN LEVEL 2019-05-21 15:48:00 Andreas Guy MD Memonini gatica ALKALINE PHOSPHATASE 2019-05-21 15:48:00 Andreas Guy MD ALANINE AMINOTRANSFERASE 2019-05-21 15:48:00 Andreas Guy MD ASPARTATE AMINOTRANSFERASE 2019-05-21 15:48:00 Andreas Guy MD TOTAL PROTEIN 2019-05-21 15:48:00 Andreas Guy MD Memonini gatica FRACTIONATED BILIRUBIN 2019-05-21 15:48:00 Andreas Guy D DIMER 2019-04-29 13:46:00 Hector Castillo MD XR FINGER 2+ VW LEFT 2019-03-12 13:49:43 Duke Bashir XR HAND 3+ VW LEFT 2019-02-12 16:54:03 Duke Bashir Plan of Care Planned Activity Planned Date Details Comments Source Future Scheduled 2020-01-11 INFLUENZA VACCINE Adrian mariee [facility] Test 00:00:00 [code = INFLUENZA VACCINE] Future Scheduled 2011 65+ PNEUMOCOCCAL Beth [facility] Test 00:00:00 VACCINE (1 of 2 - PCV13) [code = 65+ PNEUMOCOCCAL VACCINE (1 of 2 - PCV13)] Future Scheduled 1996 BREAST CANCER [facility] Test 00:00:00 SCREENING [code = BREAST CANCER SCREENING] Future Scheduled 1996 COLONOSCOPY SCREENING Jose Miguel enamorado [facility] Test 00:00:00 [code = COLONOSCOPY SCREENING] Future Scheduled 1996 SHINGLES VACCINES (#1) H dustin [facility] Test 00:00:00 [code = SHINGLES VACCINES (#1)] Future Scheduled 1956 DIABETIC FOOT EXAM [place] [facility] Test 00:00:00 [code = DIABETIC FOOT EXAM] Future Scheduled 1945 DIABETIC RETINAL EYE Walter ston [facility] Test 00:00:00 EXAM [code = DIABETIC RETINAL EYE EXAM] Encounters Start End Encounter Admission Attending Care Care Encounter Source Date/Time Date/Time Type Type Clinicians Facility Department ID 2020-01-02 2020-01-02 [id number] [place] 00:00:00 00:00:00 [place], [address] 2020-01-02 2020-01-02 [facility] [id number] [place] 00:00:00 00:00:00 [place], [address] Results Test Description Test Time Test Comments Results Result [facility] e Comments CT Chest Abdomen 2019-05-12 1. Stable right MD Guzman Pelvis with 1 thyroid nodule.2. No Contrast 00:48:03 evidence of metastatic disease.Interface, Radiology Results In - 05/21/2019 6:50 PM CSTFULL RESULT:Examination: CT CHEST ABDOMEN PELVIS W CONTRAST, 05/21/2019 11:48 AMClinical History: Primary malignant neoplasm of anusCancer of anal canalThyroid noduleOther pulmonary embolism with acute cor pulmonaleCoronary arteriosclerosis, not otherwise specifiedIndication: anal cancerComparison: CT from 12/03/2018, CT from 01/24/2018, Technique: ct chest with contrast. ct abdomen with contrast. ct pelvis with contrast. Findings:Thyroid: A 3.2 x 3.4 cm right thyroid nodule image 5 series 3 previously measured 3.1 x 3.5 cm.Lungs: Lungs are clear. Vascular: Previously seen pulmonary emboli have resolved.Hepatobiliary : The liver, spleen, pancreas are normal.Gastrointestina l: Stomach, small, and large bowel are normal.Genitourinary: Normal. Lymphatics: No lymphadenopathy.MSK: There is a 2.2 x 3.2 cm lipoma in the right lateral abdominal wall image 224 series 3.IMPRESSION:1. Stable right thyroid nodule.2. No evidence of metastatic disease. Fractionated Bilirubin 2019-05-21 17:42:26 Test Item Value Reference Range Interpretation Comme nts Bili Total (test code = 5096) 0.6 mg/dL <=1.2 Indocyanine Green (ICG) may cause falsely elevate d bilirubin results. Total and direc t bilirubin must not be measured fro m samples containing indocyanine gre en. False elevation of total biliru bin can be seen in patients with I gG concentrations above 28 g/L. Bili Direct (test code = 5094) 0.2 mg/dL <=0.3 Indocyanine Green (ICG) may cause falsely elevate d bilirubin results. Total and direc t bilirubin must not be measured fro m samples containing indocyanine gre en. Bili Indirect (test code = 0.4 mg/dL 0-0.9 5095) MD HindsGlomerular Filtration [id number] 17:42:25 Test Item Value Reference Range Interpretation Comments eGFR-AA (test 103 >=60 mL/min/1.73 sq. Normal eGFR: >= 60 code = 8062) m mL/min/1.73 m2N ote: The eGFR is calcula antony using the CKD-EPI equ ation. The eGFR declines w ith age. eGFR <60 mL/min /1.73 m2 is considered as " decreased". This equation s hould only be used for pat ients 18 and older. Acco rding to the National Ki dney Foundation's Ki dney Disease Outcome Quality Initiative (KDO QI) classification and 2012 Kidney Disease Improving Global Outcomes (KDIGO) Clinical Practi ce Guideline, the stage of CKD should be c ategorized based on estima antony GFR. Stage Descripti on GFR mL/min/1.73 m21 Normal or high GFR >=902 Mildly de creased GFR 60-893a Mildly to moder ately decreased GFR 45-593b Moderately to s everely decreased GFR 30-444 Severely decrea sed GFR 15-295 Kidney failure <15 eGFR-REINIER (test 89 >=60 mL/min/1.73 sq. Shaniqua l eGFR: >= 60 code = 8063) m mL/min/1.73 m2N ote: The eGFR is calcula antony using the CKD-EPI equ ation. The eGFR declines w ith age. eGFR <60 mL/min /1.73 m2 is considered as " decreased". This equation s hould only be used for pat ients 18 and older. Acco rding to the National Ki dney Foundation's Ki dney Disease Outcome Quality Initiative (KDO QI) classification and 2012 Kidney Disease Improving Global Outcomes (KDIGO) Clinical Practi ce Guideline, the stage of CKD should be c ategorized based on estima antony GFR. Stage Descripti on GFR mL/min/1.73 m21 Normal or high GFR >=902 Mildly de creased GFR 60-893a Mildly to moder ately decreased GFR 45-593b Moderately to s everely decreased GFR 30-444 Severely decrea sed GFR 15-295 Kidney failure <15 MD HindsTotal [id number] 17:42:24 Test Item Value Reference Range Interpretation Comments Total Protein (test code = 7649) 6.9 6.4- 8.3 gm/dL MD HindsMagnesium [id number] 17:42:23 Test Item Value Reference Range Interpretation Comments Magnesium (test code = 6359) 2.0 mg/dL 1.6-2.6 MD HindsAlkaline [id number] 17:42:21 Test Item Value Reference Range Interpretation Comments Alk Phos (test code = 4768) 69 U/L 35-104 MD HindsPhosphorus [id number] 17:42:20 Test Item Value Reference Range Interpretation Comments Phosphorus (test code = 6817) 2.9 mg/dL 2.5-4.5 MD [id number] 17:42:19 Test Item Value Reference Range Interpretation Comments ALT (test code = 4705) 20 U/L <=33 MD [id number] 17:42:18 Test Item Value Reference Range Interpretation Comments LDH (test code = 182 U/L 135-214 Results gre ater than 1800 6111) U/L may not be reliable due to matrix effec t with extended diluti on as it exceeds the man ufacturer s recommended l imit. Caution should be exercised when interpreti ng such values and done in conjunction wit h clinical context. MD Hinds.Serum [id number] 17:42:17 Test Item Value Reference Range Interpretation Comments Creatinine (test code = 5399) 0.64 mg/dL 0.51-0.95 MD HindsCalcium [id number] 17:42:16 Test Item Value Reference Range Interpretation Comments Calcium Lvl (test code = 5258) 9.4 mg/dL 8.4-10.2 MD [id number] 17:42:15 Test Item Value Reference Range Interpretation Comments BUN (test code = 5055) 19 mg/dL 6-23 MD HindsAlbumin [id number] 17:42:14 Test Item Value Reference Range Interpretation Comments Albumin Lvl (test code = 4763) 4.7 3.5- 5.2 gm/dL MD HindsAspartate [id number] 17:42:13 Test Item Value Reference Range Interpretation Comments AST (test code = 4731) 19 U/L <=32 MD HindsElectrolyte [id number] 17:42:12 Test Item Value Reference Range Interpretation Comments Sodium Lvl (test code = 7355) 138 136- 145 mEq/L Potassium Lvl (test code = 6854) 4.1 3.5- 5.1 mEq/L Chloride (test code = 5279) 104 98- 107 mEq/L CO2 (test code = 5227) 23 22- 29 mEq/L Anion Gap (test code = 9325) 11 4- 14 mEq/L MD HindsGlucose [id number] 17:42:11 Test Item Value Reference Range Interpretation Comments Glucose Level (test code 173 mg/dL 70-99 H Ref erence range is = 5699) valid for fasti ng specimens only. Guidelines established by the [place] Diabet es Association guidelines (Standards of Medical Care in Diabetes 2016. Diabetes Care 2 016; 39: S13-22) are that a fasting gluco se of greater than or equal to 126 mg /dL or a random glu cose greater than or equal to 200 mg /dL with symptoms, that are confirmed b y repeat testing on a different day, meet the criteria fo r diabetes mellit us. Lab Interpretation (test Abnormal code = 35849-7) MD [id number] 17:42:10 Test Item Value Reference Range Interpretation Comments CEA (test code = 0.5 ng/mL <=3.8 Reference R anges: 5203) Smoker: 0.0-5. 5 MD HindsD [id number] 17:29:04 Test Item Value Reference Range Interpretation Comments D-Dimer (test code = 1.26 0.10- 0.50 [place] [address]-2) mcg/ml FEU exclusion of ve nous thromboembolism is <0.40 mcg/mL FEUs (fi brinogen equivalent unit s). Lab Interpretation Abnormal (test code = 29691-6) MD H[id number] 17:02:02 Test Item Value Reference Range Interpretation Comments Neutrophil % (test code = 53.9 % 42-66 6491) Lymphocyte % (test code = 32.7 % 24-44 6194) Monocyte % (test code = 10.4 % 2-7 H 6422) Eosinophil % (test code = 1.8 % 1-4 5520) Basophil % (test code = 0.9 % 0-1 5068) IGRE % (test code = 5958) 0.3 % 0-0.4 IG RE % count includes Metamyelocytes, Myelocytes, and Promyelocytes. Neutrophil Abs (test code 1.76 K/uL 1.7-7.3 = 6492) Lymphocyte Abs (test code 1.07 K/uL 1-4.8 = 6195) Monocyte Abs (test code = 0.34 K/uL 0.08-0.7 6423) Eosinophil Abs (test code 0.06 K/uL 0.04-0.4 = 5521) Basophil Abs (test code = 0.03 K/uL 0-0.1 5069) IG Abs (test code = 5954) 0.01 K/uL 0-0.04 Lab Interpretation (test Abnormal code = 95116-8) MD Hinds.[id number] 17:02:00 Test Item Value Reference Range Interpretation Comments WBC (test code = 8034) 3.3 K/uL 4-11 L RBC (test code = 6932) 4.32 4.00- 5.50 M/uL Hgb (test code = 5898) 13.5 12.0- 16.0 gm/dL Hct (test code = 5860) 39.8 % 37-47 MCV (test code = 6222) 92 fL 82-98 MCH (test code = 6220) 31.3 pg 27-31 H MCHC (test code = 6221) 33.9 31.0- 36.0 gm/dL RDW-SD (test code = 42.2 fL 35.1-46.3 6972) RDW-CV (test code = 12.5 % 12-15.5 6971) Platelet count (test 176 K/uL 140-440 code = 6832) MPV (test code = 6282) 10.4 fL 4-10.4 INRBC (test code = 0.0 % <=0.0 The INRBC (instrument 5974) NRBC) value ref lects the enumeration of nucleated red b lood cells contained in a 200uL sampleof whole blood analyzed by the instrument. Thi s value maydiffer from the NRBC value reported in a m anual differential,wh ich is based on a 100 cell differential. Lab Interpretation Abnormal (test code = 83889-1) MD HindsBethel BUN + [id number] 16:50:36 Test Item Value Reference Range Interpretation Comments POC BUN (test 21 mg/dL 8-26 code = 6299-2) POC Crea (test 0.6 mg/dL 0.6-1.3 Medications, especially code = hydroxyurea or supplements, 18720-8) such as ascorba te, can interfere with test results causing a false ly and significantlyhi gher result than expected. If a problem is suspected wi th a patient's resul t, a sample should be sent to the laboratory for confirmatory testing. POC eGFR-AA 106 >=60 mL/min/1.73 Normal eGFR >= 60 (test code = m2 mL/min/1.73 [place]2 [place] [address]-0) calculated damari casanova the CKD-EPI equation. The e GFR declines with age. eGFR <60 mL/min/1.73 m2 is considered as "decreased" This equation should only be used for patients 18 and older. According to th e National Kidney Foundati on's Kidney Disease Outcome Quality Initiative (KDO QI) classification and 2012 Kidney Disease Improving Global Outcomes (KDIGO) Clinical Practi ce Guideline, the stage of CK D should be categorized bas ed on estimated GFR. Stage Description GFR mL/min/1.73 m21 Kidney musa ge with normal or high GFR >=902 Kidney damage w ith mild decrease in GFR 60-893a Mild to moderat e decrease in GFR 45-593b Moderate to severe decrease in GFR 30-444 Severe d ecrease in GFR 15-295 K idney failure <15 (or lane lysis) POC eGFR-REINIER 91 >=60 mL/min/1.73 Normal eGFR >= 60 (test code = m2 mL/min/1.73 [place] [address]-9) calculated usin g the CKD-EPI equation. The e GFR declines with age. eGFR <60 mL/min/1.73 m2 is considered as "decreased" This equation should only be used for patients 18 and older. According to th e National Kidney Foundati on's Kidney Disease Outcome Quality Initiative (KDO QI) classification and 2012 Kidney Disease Improving Global Outcomes (KDIGO) Clinical Practi ce Guideline, the stage of CK D should be categorized bas ed on estimated GFR. Stage Description GFR mL/min/1.73 m21 Kidney musa ge with normal or high GFR >=902 Kidney damage w ith mild decrease in GFR 60-893a Mild to moderat e decrease in GFR 45-593b Moderate to severe decrease in GFR 30-444 Severe d ecrease in GFR 15-295 K idney failure <15 (or lane lysis) POC Clean Dev Yes (test code = 6672) MD Hinds
[2020-01-03 15:46] LABS: Absolute Lymphocytes (CBC) 2.7 K/uL (0.7-4.9); Basophils % 0.7 % (0-1.3); Hematocrit 42.9 % (36.0-45.0); Lymphocytes % 49.4 % (15.3-44.8); MPV 8.5 fL (7.6-11.3); RBC Red Blood Cell Count 4.77 M/uL (3.86-4.86)
[2020-01-03 15:50] LABS: Protime INR 1.37
[2020-01-03 16:11] LABS: ALT/SGPT 36 U/L (12-78); AST/SGOT 34 U/L (15-37); Alkaline Phosphatase 95 U/L (45-117); BUN Blood Urea Nitrogen 19 mg/dL (7-18); Bicarbonate 21 mmol/L (21-32); Bilirubin Direct 0.4 mg/dL (0-0.2); Bilirubin Total 0.8 mg/dL (0.2-1.0); Glucose Level 155 mg/dL (74-106); NT PRO-BNP 308 pg/mL (<125); Potassium 3.3 mmol/L (3.5-5.1); Protein, Total 7.6 g/dL (6.4-8.2); Sodium Level 141 mmol/L (136-145); Troponin (Emerg Dept Use Only) < 0.02 ng/mL (0.0-0.045)
[2020-01-03] MEDS ORDERED: PROMETHAZINE INJ 25 MG/ML AMP ONE ×2 (16:16→20:35)
[2020-01-03] MEDS ORDERED: FENTANYL CITR 100 MCG/2 ML ONE ×3 (16:17→20:35)
--- NOTE | 2020-01-03 16:36 | RAD REPORT ---
EXAM DESCRIPTION: Jorge Single View01/03/2020 4:00 pm CLINICAL HISTORY: Abdominal pain COMPARISON: none FINDINGS: The lungs appear clear of acute infiltrate. The heart is normal size IMPRESSION: No acute abnormalities displayed
--- NOTE | 2020-01-03 16:39 | EDPHYS ---
Physician Documentation [facility] Name: Mona Camarillo Age: 74 yrs Sex: Female : 1945 Arrival Date: 01/03/2020 Time: 15:08 Bed 19 Private MD: Mary Villalta ED Physician Mike Galvan HPI: 01/02 15:46 This 74 yrs old Female presents to ER via Ambulatory with complaints of snw Abdominal Pain, Nausea. 15:46 The patient presents with abdominal pain in the epigastric area. Onset: The snw symptoms/episode began/occurred suddenly, just prior to arrival. The symptoms do not radiate. Associated signs and symptoms: Pertinent positives: nausea, diaphoresis. The symptoms are described as sharp. Severity of pain: At its worst the pain was moderate severe. The patient has not experienced similar symptoms in the past. It is unknown whether or not the patient has recently seen a physician, sees Dr. Villalta, hx of rectal ca, PE, DVT, lymphedema. previous ekg within normal, + ekg changes today. Historical: - Allergies: 15:15 Codeine; ss - PMHx: 15:15 Cancer; Hypertension; ss - PSHx: 15:15 left knee replacement; Heart stents; Carpal Tunnel Repair; rhinoplasty; ss - Immunization history:: Adult Immunizations unknown. - Social history:: Smoking status: unknown. ROS: 15:44 Eyes: Negative for injury, pain, redness, and discharge, ENT: Negative for injury, snw pain, and discharge, Neck: Negative for injury, pain, and swelling, Cardiovascular: Negative for chest pain, palpitations, and edema, Respiratory: Negative for shortness of breath, cough, wheezing, and pleuritic chest pain, Back: Negative for injury and pain, : Negative for injury, bleeding, discharge, and swelling, MS/Extremity: Negative for injury and deformity, Neuro: Negative for headache, weakness, numbness, tingling, and seizure, Psych: Negative for depression, anxiety, suicide ideation, homicidal ideation, and hallucinations. 15:44 Constitutional: Positive for sharp pain to epigastric area, diaphoresis, pallor, nausea. 15:44 Abdomen/GI: Positive for nausea, sharp pain to epigastric area. 15:44 Skin: Positive for diaphoresis. Exam: 15:43 Head/Face: Normocephalic, atraumatic. Eyes: Pupils equal round and reactive to light, snw extra-ocular motions intact. Lids and lashes normal. Conjunctiva and sclera are non-icteric and not injected. Cornea within normal limits. Periorbital areas with no swelling, redness, or edema. ENT: Nares patent. No nasal discharge, no septal abnormalities noted. Tympanic membranes are normal and external auditory canals are clear. Oropharynx with no redness, swelling, or masses, exudates, or evidence of obstruction, uvula midline. Mucous membranes moist. Neck: Trachea midline, no thyromegaly or masses palpated, and no cervical lymphadenopathy. Supple, full range of motion without nuchal rigidity, or vertebral point tenderness. No Meningismus. Chest/axilla: Normal chest wall appearance and motion. Nontender with no deformity. No lesions are appreciated. Cardiovascular: Regular rate and rhythm with a normal S1 and S2. No gallops, murmurs, or rubs. Normal PMI, no JVD. No pulse deficits. Respiratory: Lungs have equal breath sounds bilaterally, clear to auscultation and percussion. No rales, rhonchi or wheezes noted. No increased work of breathing, no retractions or nasal flaring. 15:43 Back: No spinal tenderness. No costovertebral tenderness. Full range of motion. 15:43 Neuro: Awake and alert, GCS 15, oriented to person, place, time, and situation. Cranial nerves II-XII grossly intact. Motor strength 5/5 in all extremities. Sensory grossly intact. Cerebellar exam normal. Normal gait. Psych: Awake, alert, with orientation to person, place and time. Behavior, mood, and affect are within normal limits. 15:43 Constitutional: The patient appears awake, anxious, diaphoretic, frail, obese, pale. 15:43 Abdomen/GI: Inspection: abdomen appears normal, Bowel sounds: normal, Palpation: mild abdominal tenderness, in the epigastric area. 15:43 Skin: Appearance: Color: pale, diaphoresis is noted. 15:46 ECG was reviewed by the Attending Physician. snw Vital Signs: 15:13 Pulse 97; Resp 20; Temp 97.3(TE); Pulse Ox 95% ; Weight 45.36 kg (M); Height 5 ft. 2 ss in. (157.48 cm); Pain 9/10; 15:15 BP 110 / 90; ss 15:30 BP 123 / 67; Pulse 80; Resp 20; Pulse Ox 93% on R/A; sv 16:30 BP 132 / 72; Pulse 77; Resp 21; Pulse Ox 98% ; ah 18:40 BP 130 / 74; Pulse 85; Resp 16; Pulse Ox 97% ; ah 19:30 BP 127 / 55; Pulse 80; Resp 18; Pulse Ox 97% ; ah 20:11 BP 134 / 76; Pulse 89; Resp 16; Pulse Ox 95% ; ah 21:30 BP 120 / 67; Pulse 74; Resp 22; Pulse Ox 95% ; ah 23:19 BP 110 / 70; Pulse 80; Resp 17; Temp 98.9; Pulse Ox 100% ; ea 15:13 Body Mass Index 18.29 (45.36 kg, 157.48 cm) ss MDM: 15:41 Patient medically screened. snw 16:38 Data reviewed: vital signs, nurses notes. Data interpreted: Pulse oximetry: on room air snw is 93 %. Interpretation: acceptable. Counseling: I had a detailed discussion with the patient and/or guardian regarding: the historical points, exam findings, and any diagnostic results supporting the discharge/admit diagnosis, lab results, radiology results, the need for further work-up and treatment in the hospital. Physician consultation: Osman IVERSON was called at 16:38, was contacted at 16:38, regarding admission, to the telemetry unit. 01/02 15:18 Order name: Basic Metabolic Panel; Complete Time: 16:14 01/02 15:18 Order name: CBC with Diff; Complete Time: 16:49 01/02 15:18 Order name: LFT's; Complete Time: 16:14 01/02 15:18 Order name: Magnesium; Complete Time: 16:14 01/02 15:18 Order name: NT PRO-BNP; Complete Time: 16:14 01/02 15:18 Order name: PT-INR; Complete Time: 15:54 01/02 15:18 Order name: Troponin (emerg Dept Use Only); Complete Time: 16:14 01/02 15:18 Order name: XRAY Chest (1 view); Complete Time: 16:39 01/02 15:48 Order name: Manual Differential; Complete Time: 16:49 EDMS 01/02 16:56 Order name: CT Aorta for Dissection; Complete Time: 17:48 snw 01/02 17:56 Order name: US Abdomen Limited; Complete Time: 19:19 snw 01/02 17:57 Order name: Add On-Lab snw 01/02 18:07 Order name: Lipase; Complete Time: 18:43 EDMS 01/02 15:18 Order name: EKG; Complete Time: 15:19 snw 01/02 15:18 Order name: EKG - Nurse/Tech; Complete Time: 15:32 snw 01/02 15:18 Order name: EKG; Complete Time: 15:19 sv 01/02 15:18 Order name: Cardiac monitoring; Complete Time: 15:31 sv 01/02 15:18 Order name: EKG - Nurse/Tech; Complete Time: 15:31 sv 01/02 15:18 Order name: IV Saline Lock; Complete Time: 15:31 sv 01/02 15:18 Order name: Labs collected and sent; Complete Time: 15:30 sv 01/02 15:18 Order name: O2 Per Protocol; Complete Time: 15:30 sv 01/02 15:18 Order name: O2 Sat Monitoring; Complete Time: 15:30 sv 01/02 21:12 Order name: CONS Physician Consult EDMS EC:46 Rate is 87 beats/min. AL interval is normal. QRS interval is prolonged. QT interval is snw normal. No Q waves. T waves are Inverted. Clinical impression: NSR w/ Non-specific ST/T Changes. Administered Medications: 16:10 Drug: fentaNYL (PF) 25 mcg Route: IVP; Site: right antecubital; 01/03 09:26 Follow up: Response: No adverse reaction 01/02 16:10 Drug: Phenergan 6.25 mg Route: IVP; Site: right antecubital; 22:10 Follow up: Response: No adverse reaction 17:54 Drug: Mefoxin 1 grams Route: IVPB; Infused Over: 30 mins; Site: right antecubital; 22:09 Follow up: Response: No adverse reaction; IV Status: Completed infusion 18:15 Drug: NS 0.9% 1000 ml Route: IV; Rate: 125 ml/hr; Site: left antecubital; 18:45 Drug: fentaNYL (PF) 12.5 mcg Route: IVP; Site: left forearm; 22:09 Follow up: Response: No adverse reaction 22:10 Follow up: Response: No adverse reaction 22:01 Not Given (Per provider): Phenergan 6.25 mg IVP once 01/03 09:26 Not Given (Pt states that pain is improved): fentaNYL (PF) 12.5 mcg IVP once; RASS on ADMIN: Combtv4, Very Agttd3, Agttd2, Rstlss1, AlertClm0, Drwsy-1, Lt Sdtn-2, Mod Sdtn-3, Dp Sdtn-4, UnArsble-5 Disposition: 07:17 Co-signature as Attending Physician, Mike Galvan MD I agree with the assessment and kdr plan of care. Disposition: 01/03/20 16:38 Hospitalization ordered by Luis Morgan for Observation. Preliminary diagnosis are Chest pain, unspecified, Abnormal electrocardiogram [ECG] [EKG], Other acute pancreatitis. - Bed requested for Telemetry/MedSurg (observation). - Status is Observation. ea - Condition is Stable. - Problem is new. - Symptoms are unchanged. Signatures: Dispatcher [employer] EDNena Arita, RN Mike Miranda MD MD [facility] Sera Ortega, GEOPHYSICAL PROSPECTING SURVEYOR-C GEOPHYSICAL PROSPECTING SURVEYOR-Csnw Nette Mcneal RN RN ss Garcia, Cindy, RN RN Wilda Blankenship RN RN ea Harris, Amy, RN RN Corrections: (The following items were deleted from the chart) 01/02 17:53 16:38 Hospitalization Ordered by Osman Barreto [facility] for Observation. Preliminary snw diagnosis is Chest pain, unspecified; Abnormal electrocardiogram [ECG] [EKG]. Bed requested for Telemetry/MedSurg (observation). Status is Observation. Condition is Stable. Problem is new. Symptoms are unchanged. snw 19:23 17:53 01/03/2020 16:38 Hospitalization Ordered by Osman Barreto [facility] for Observation. snw Preliminary diagnosis is Chest pain, unspecified; Abnormal electrocardiogram [ECG] [EKG]; Other acute pancreatitis. Bed requested for Telemetry/MedSurg (observation). Status is Observation. Condition is Stable. Problem is new. Symptoms are unchanged. formerly [facility] 21:50 19:23 01/03/2020 16:38 Hospitalization Ordered by Luis Morgan for Observation. cg Preliminary diagnosis is Chest pain, unspecified; Abnormal electrocardiogram [ECG] [EKG]; Other acute pancreatitis. Bed requested for Telemetry/MedSurg (observation). Status is Observation. Condition is Stable. Problem is new. Symptoms are unchanged. formerly [facility] 21:50 21:50 01/03/2020 16:38 Hospitalization Ordered by Luis Morgan for Observation. cg Preliminary diagnosis is Chest pain, unspecified; Abnormal electrocardiogram [ECG] [EKG]; Other acute pancreatitis. Bed requested for Telemetry/MedSurg (observation). Status is Observation. Condition is Stable. Problem is new. Symptoms are unchanged. 23:56 21:50 01/03/2020 16:38 Hospitalization Ordered by Luis Morgan for Observation. ea Preliminary diagnosis is Chest pain, unspecified; Abnormal electrocardiogram [ECG] [EKG]; Other acute pancreatitis. Bed requested for Telemetry/MedSurg (observation). Status is Observation. Condition is Stable. Problem is new. Symptoms are unchanged.
--- NOTE | 2020-01-03 16:39 | ER ---
Nurse's Notes [facility] Name: Mona Camarillo Age: 74 yrs Sex: Female : 1945 Arrival Date: 01/03/2020 Time: 15:08 Bed 19 Private MD: Mary Villalta Diagnosis: Chest pain, unspecified;Abnormal electrocardiogram [ECG] [EKG];Other acute pancreatitis Presentation: 01/02 15:13 Chief complaint: Patient states: epigastric pain and nausea that began 20 minutes ago. ss Coronavirus screen: Patient denies a cough. Patient reports shortness of breath or difficulty breathing. Patient denies measured and/or subjective temperature greater than 100.4F prior to today's visit. Patient denies travel on a cruise ship or to a country the [facility] currently lists as an affected area. Patient denies contact with known and/or suspected case of COVID-19. Ebola Screen: Patient denies exposure to infectious person. Patient denies travel to an Ebola-affected area in the 21 days before illness onset. Initial Sepsis Screen: Does the patient meet any 2 criteria? No. Patient's initial sepsis screen is negative. Does the patient have a suspected source of infection? No. Patient's initial sepsis screen is negative. Risk Assessment: Do you want to hurt yourself or someone else? Patient reports no desire to harm self or others. Onset of symptoms was January 03, 2020. 15:13 Method Of Arrival: Ambulatory 15:13 Acuity: SIDNEY 2 ss Historical: - Allergies: 15:15 Codeine; ss - PMHx: 15:15 Cancer; Hypertension; ss - PSHx: 15:15 left knee replacement; Heart stents; Carpal Tunnel Repair; rhinoplasty; ss - Immunization history:: Adult Immunizations unknown. - Social history:: Smoking status: unknown. Screenin:34 Abuse screen: Denies threats or abuse. Denies injuries from another. Nutritional sv screening: No deficits noted. Tuberculosis screening: No symptoms or risk factors identified. Fall Risk None identified. Assessment: 15:20 General: Appears uncomfortable, well developed, Behavior is cooperative, flat. Pain: sv Complains of pain in epigastric area Pain currently is 9 out of 10 on a pain scale. Neuro: Level of Consciousness is awake, alert, obeys commands, Oriented to person, place, time, situation, Moves all extremities. Respiratory: Respiratory effort is even, unlabored, Respiratory pattern is regular, symmetrical. Respiratory: Reports shortness of breath with the pain. GI: Abdomen is round Reports epigastric pain, nausea. Derm: Skin is clammy, Skin is normal. 16:10 Reassessment: Patient and/or family updated on plan of care and expected duration. Pain ah level reassessed. Patient is alert, oriented x 3, equal unlabored respirations, skin warm/dry/pink. medication given at this time for pain and nausea. NO other needs voiced. 17:15 Reassessment: Patient and/or family updated on plan of care and expected duration. Pain ah level reassessed. Patient is alert, oriented x 3, equal unlabored respirations, skin warm/dry/pink. Pt tolerated meds well. No reaction noted. 18:00 Reassessment: Antibiotics given to pt and fluids started at this time. Pt tolerated ah well. No other needs voiced at this time. 19:30 Reassessment: Patient and/or family updated on plan of care and expected duration. Pain ah level reassessed. Pt assisted to BSC and back in bed. Pt weak but tolerated well. 20:30 Reassessment: Patient and/or family updated on plan of care and expected duration. Pain ah level reassessed. fentanyl and phenergan not given at this time. Pt is weak and unable to move self in bed. Pt states that pain is better at this time. 21:30 Reassessment: Patient and/or family updated on plan of care and expected duration. Pain ah level reassessed. Patient is alert, oriented x 3, equal unlabored respirations, skin warm/dry/pink. Pt awaiting on bed assignment. Resting with eyes closed and resp even and unlabored. 22:40 Reassessment: Patient and/or family updated on plan of care and expected duration. Pain rr5 level reassessed. Patient is alert, oriented x 3, equal unlabored respirations, skin warm/dry/pink. 23:55 Reassessment: Patient and/or family updated on plan of care and expected duration. Pain rr5 level reassessed. Patient is alert, oriented x 3, equal unlabored respirations, skin warm/dry/pink. Pt admitted to second floor, tolerating well. Vital Signs: 15:13 Pulse 97; Resp 20; Temp 97.3(TE); Pulse Ox 95% ; Weight 45.36 kg (M); Height 5 ft. 2 ss in. (157.48 cm); Pain 9/10; 15:15 BP 110 / 90; ss 15:30 BP 123 / 67; Pulse 80; Resp 20; Pulse Ox 93% on R/A; sv 16:30 BP 132 / 72; Pulse 77; Resp 21; Pulse Ox 98% ; ah 18:40 BP 130 / 74; Pulse 85; Resp 16; Pulse Ox 97% ; ah 19:30 BP 127 / 55; Pulse 80; Resp 18; Pulse Ox 97% ; ah 20:11 BP 134 / 76; Pulse 89; Resp 16; Pulse Ox 95% ; ah 21:30 BP 120 / 67; Pulse 74; Resp 22; Pulse Ox 95% ; ah 23:19 BP 110 / 70; Pulse 80; Resp 17; Temp 98.9; Pulse Ox 100% ; ea 15:13 Body Mass Index 18.29 (45.36 kg, 157.48 cm) ED Course: 15:08 Patient arrived in ED. ag5 15:08 Mary Villalta MD is Private Physician. ag5 15:15 Triage completed. ss 15:15 Arm band placed on right wrist. ss 15:18 Sera Ortega FNP-C is [facility]. snw 15:18 Mike Galvan MD is Attending Physician. snw 15:20 Patient has correct armband on for positive identification. Placed in gown. Bed in low sv position. Call light in reach. threat monitoring analyst on. Pulse ox on. NIBP on. Door closed. Head of bed elevated. 15:20 Inserted saline lock: 18 gauge in right antecubital area, using aseptic technique. sv Blood collected. Flushed right antecubital with 5 ml normal saline. 15:20 EKG done, by ED staff, reviewed by Mike Galvan MD. sv 15:35 Awaiting ED provider evaluation. sv 15:52 Татьяна Spencer, RN is Primary Nurse. ah 16:00 XRAY Chest (1 view) In Process Unspecified. EDMS 16:37 Osman Barreto FNP-C is Hospitalizing Provider. snw 17:21 CT Aorta for Dissection In Process Unspecified. EDMS 19:09 US Abdomen Limited In Process Unspecified. EDMS 19:22 Hospitalizing Provider role handed off by Osman Barreto FNP-C snw 19:22 Luis Morgan is Hospitalizing Provider. snw 23:22 No provider procedures requiring assistance completed. Patient admitted, IV remains in rr5 place. intact, No redness/swelling at site. Administered Medications: 16:10 Drug: fentaNYL (PF) 25 mcg Route: IVP; Site: right antecubital; 01/03 09:26 Follow up: Response: No adverse reaction 01/02 16:10 Drug: Phenergan 6.25 mg Route: IVP; Site: right antecubital; 22:10 Follow up: Response: No adverse reaction 17:54 Drug: Mefoxin 1 grams Route: IVPB; Infused Over: 30 mins; Site: right antecubital; 22:09 Follow up: Response: No adverse reaction; IV Status: Completed infusion 18:15 Drug: NS 0.9% 1000 ml Route: IV; Rate: 125 ml/hr; Site: left antecubital; 18:45 Drug: fentaNYL (PF) 12.5 mcg Route: IVP; Site: left forearm; 22:09 Follow up: Response: No adverse reaction 22:10 Follow up: Response: No adverse reaction 22:01 Not Given (Per provider): Phenergan 6.25 mg IVP once 01/03 09:26 Not Given (Pt states that pain is improved): fentaNYL (PF) 12.5 mcg IVP once; RASS on ADMIN: Combtv4, Very Agttd3, Agttd2, Rstlss1, AlertClm0, Drwsy-1, Lt Sdtn-2, Mod Sdtn-3, Dp Sdtn-4, UnArsble-5 Outcome: 01/02 16:38 Decision to Hospitalize by Provider. snw 23:22 Admitted to Med/surg accompanied by tech, via stretcher, room 229, with chart, Report rr5 called to michele 23:22 Condition: stable 23:22 Instructed on the need for admit. 23:56 Patient left the ED. ea Signatures: Dispatcher [facility] Nena Mckeon RN RN sv Waters, Shelly, LIGHT OIL OPERATOR-C LIGHT OIL OPERATOR-Nette Dawkins RN RN ss Antunez, Wilda, RN RN ea Darryn Jama, RN RN rr5 Willy Arciniega5 Татьяна Spencer, RN RN ah
[2020-01-03 16:44] LABS: Platelet Estimate ADEQ
[2020-01-03 16:45] LABS: Blood Morphology Comment NOT SEEN (NOT SEEN)
--- NOTE | 2020-01-03 17:43 | RAD REPORT ---
EXAM DESCRIPTION: CT - Angio Aorta For Dissection - 01/03/2020 5:20 pm CLINICAL HISTORY: . Chest and abdominal pain COMPARISON: 2014 CT abdomen TECHNIQUE: Computed tomography angiography of the chest, abdomen pelvis were obtained. 100 cc Isovue 370 was administered intravenously. Coronal and sagittal reconstruction were performed. MIP 3D reconstruction was performed All CT scans are performed using dose optimization technique as appropriate and may include automated exposure control or mA/KV adjustment according to patient size. FINDINGS: An aortic dissection is not seen. An aortic aneurysm is not displayed. The celiac, SMA and SCAR are patent . 3 centimeter right thyroid nodule is suspected A lung consolidation is not present. A pericardial effusion is not seen. A pleural effusion is not n oted. The liver,spleen, pancreas adrenals kidneys demonstrate no significant abnormality. 111 The appendix is normal. There no evidence diverticulitis. Gallbladder wall is thickened. The pancreatic head is inhomogeneous. Moderate stranding adjacent the pancreas Small to moderate hiatal hernia 3.5 centimeter lipoma right lateral abdominal wall Small right posterolateral disc herniation L5-S1 suspected IMPRESSION: Negative for an aortic dissection. Pancreatitis suspected Thickened gallbladder wall likely cholecystitis 3 centimeter right thyroid nodule. Nonemergent thyroid ultrasound recommend
[2020-01-03] MEDS ORDERED: NA CHLORIDE 0.9% 1,000 ML ONE (18:08)
[2020-01-03] MEDS ORDERED: CEFOXITIN/SWI 1gm 1 GM/10 ML SYR ONE (18:08)
--- NOTE | 2020-01-03 19:17 | RAD REPORT ---
EXAM DESCRIPTION: US - Abdomen Exam Limited - 01/03/2020 7:02 pm CLINICAL HISTORY: Abdominal pain. . FINDINGS: The gallbladder is borderline distended. A gallstone is not visualized. The gallbladder wa ll measures 5 millimeters. . The biliary tree is normal caliber. IMPRESSION: Thickened gallbladder wall may indicate acalculous cholecystitis or be related to hypoal buminemia
--- NOTE | 2020-01-03 21:06 | P.HP ---
Certification for Inpatient Patient admitted to: Inpatient With expected LOS: >2 Midnights Practitioner: I am a practitioner with admitting privileges, knowledge of patient current condition, hospital course, and medical plan of care. Services: Services provided to patient in accordance with Admission requirements found in Title 42 Section 412.3 of the Code of Federal Regulations Patient History Date of Service: 01/03/20 Reason for admission: Epigastric pain History of Present Illness: 74-year-old woman with a history of rectal cancer, prior history of pancreatitis, presented emergency department with a complaint of epigastric pain of sudden onset today. Patient reports associated nausea, no vomit. She reports history stool incontinence. She denied any fever. Blood work in the ED demonstrates acute pancreatitis with severely elevated lipase level. CT abdomen and pelvis also reports stranding on the pancreas suggestive of acute pancreatitis. CT abdomen and pelvis also report distended gallbladder and possible acalculous cholecystitis. She does not meet criteria for sepsis. Patient is admitted for further management. Allergies codeine Allergy (Verified 02/27/17 08:41) Nausea/Vomiting Home Medications: Aspirin [Aspirin EC 81 MG] 81 mg PO DAILY 02/27/17 Clopidogrel Bisulfate [Plavix*] 75 mg PO DAILY 02/27/17 Lisinopril [Zestril] 2.5 mg PO DAILY AFTER SUPPER 02/27/17 Loperamide [Imodium*] 4 mg PO UD PRN 02/27/17 Metformin HCl [Glucophage*] 500 mg PO DAILY WITH BREAKFAST 02/27/17 Metoprolol Tartrate [Lopressor] 50 mg PO DAILY AFTER SUPPER 02/27/17 Niacinamide [Niacin] 500 mg PO DAILY 02/27/17 Pravastatin Sodium 10 mg PO DAILY 02/27/17 Red Yeast Rice 600 mg PO DAILY 02/27/17 Hydrocodone 7.5/APAP 325 [[place] 7.5/325 mg*] 1 tab PO Q6H PRN #30 tab 03/02/17 - Past Medical/Surgical History Diabetic: Yes -: NIDDM -: CAD -: HTN -: rectal cancer -: donte carpel tunnel 10-15 yrs ago -: rhinoplasty 14 yrs ago -: cardiac stents x 4 -: hysterectomy 35 yrs ago - Family History Father -: Heart disease, Diabetes Notes: mother, breast ca age 86 Mother -: Cancer (Breast) - Social History Alcohol use: No CD- Drugs: No Caffeine use: Yes Review of Systems Other: Except as documented, all other systems reviewed and negative. Physical Examination - Physical Exam General: Alert, In no apparent distress, Oriented x3 HEENT: Mucous membr. moist/pink, Sclerae nonicteric Neck: JVD not distended Cardiovascular: No edema, Regular rate/rhythm, Normal S1 S2 Capillary refill: <2 Seconds Gastrointestinal: Normal bowel sounds, Soft and benign, No rebound, No guarding, Tenderness (Upper abdomen) Musculoskeletal: No swelling, No erythema Integumentary: No rashes Neurological: Normal strength at 5/5 x4 extr, Cranial nerves 3-12 intact - Studies Laboratory Data (last 24 hrs) 01/03/20 15:20: Lipase [id number] H 01/03/20 15:20: PT 16.1 H, INR 1.37 01/03/20 15:20: WBC 5.5, Hgb 14.4, Hct 42.9, Plt Count 188 01/03/20 15:20: Sodium 141, Potassium 3.3 L, BUN 19 H, Creatinine 0.77, Glucose 155 H, Magnesium 2.0, Total Bilirubin 0.8, AST 34, ALT 36, Alkaline Phosphatase 95 Assessment and Plan - Problems (Diagnosis) (1) Acute pancreatitis Current Visit: Yes Status: Acute (2) Acalculous cholecystitis Current Visit: Yes Status: Acute (3) History of rectal cancer Current Visit: Yes Status: Acute (4) Diabetes mellitus Current Visit: No Status: Acute Qualifiers: Diabetes mellitus type: type 2 Diabetes mellitus prison insulin use: without manager terminal use Diabetes mellitus complication status: with unspecified complications - Plan Admit to the medical floor. Aggressive IV hydration. Empiric IV antibiotics Consult general surgery-for acalculous cholecystitis. Insulin sliding scale for glucose management. Keep NPO Monitor CBC, electrolytes and renal function. Daily lipase level - Advance Directives Does patient have a Living Will: No Does patient have a Durable POA for Healthcare: No
[2020-01-04] MEDS ORDERED: ACETAMINOPHEN 500 MG TAB PO PRN (00:20)
[2020-01-04] MEDS ORDERED: SODIUM CHLORIDE 0.9% 10ML INJ IV PRN (00:20)
[2020-01-04] MEDS ORDERED: ONDANSETRON 4 MG/2 ML VIAL IV PRN (00:20)
[2020-01-04 00:51] VITALS: BMI 37.9
[2020-01-04] MEDS ORDERED: NA CHLORIDE 0.9% 1,000 ML with POTASSIUM CL 10 MEQ IV SCH ×2 (03:00)
[2020-01-04] MEDS: NA CHLORIDE 0.9% 1,000 ML with POTASSIUM CL 20 MEQ IV SCH ×6 (03:00→20:41)
[2020-01-04] MEDS: CEFTRIAXONE/SWI 1gm 1 GM/10 ML SYR IV SCH (03:01)
[2020-01-04] MEDS ORDERED: NS KCL 20MEQ 1,000 ML IV ONE (04:14)
[2020-01-04 05:43] LABS: Absolute Lymphocytes (CBC) 0.3 K/uL (0.7-4.9); Basophils % 0.2 % (0-1.3); Lymphocytes % 4.1 % (15.3-44.8); MPV 8.8 fL (7.6-11.3); RBC Red Blood Cell Count 4.23 M/uL (3.86-4.86)
[2020-01-04 06:10] LABS: Albumin 3.3 g/dL (3.4-5.0); Bilirubin Total 0.8 mg/dL (0.2-1.0); Magnesium 1.7 mg/dL (1.8-2.4); Phosphorus 2.8 mg/dL (2.5-4.9); Potassium 3.6 mmol/L (3.5-5.1); Protein, Total 6.6 g/dL (6.4-8.2); Thyroid Stimulating Hormone 0.368 uIU/mL (0.360-3.740)
--- NOTE | 2020-01-04 07:30 | EKG ---
Test Date: 2020-01-03 Test Time: 15:26:18 Food Chemist: DARINEL MEASUREMENT RESULTS: Intervals: Rate: 87 CA: 184 QRSD: 142 QT: 412 QTc: 495 [place]: P: 47 CA: 184 QRS: 4 T: -5 INTERPRETIVE STATEMENTS: Normal sinus rhythm Right bundle branch block T wave abnormality, consider inferior ischemia Abnormal ECG Compared to ECG 02/27/2017 09:28:21 Right bundle-branch block now present T-wave abnormality now present Possible ischemia now present Sinus arrhythmia no longer present Electronically Signed On 01-04-20 07:28:57 CDT by Davin Dutta
[2020-01-04] MEDS: PANTOPRAZOLE 40 MG INJ IVP SCH ×2 (08:47→20:41)
--- NOTE | 2020-01-04 08:47 | P.PN ---
Subjective Date of Service: 01/04/20 Primary Care Provider: Ambar Chief Complaint: Epigastric pain Subjective: Improving <Osman Barreto - Last Filed: 01/04/20 08:42> Date of Service: 01/04/20 <Grady Ricardo - Last Filed: 01/04/20 13:05> Review of Systems 10-point ROS is otherwise unremarkable Gastrointestinal: Nausea, Vomiting, Abdominal Pain <Osman Barreto - Last Filed: 01/04/20 08:42> Physical Examination - Vital Signs Temperature: 99.0 F Blood Pressure: 118/74 Pulse: 77 Respirations: 16 Pulse Ox (%): 94 - Physical Exam General: Alert, In no apparent distress, Oriented x3 HEENT: Atraumatic, Normocephalic, PERRLA, Other (Mucous membranes dry) Neck: Supple Respiratory: Clear to auscultation bilaterally, Normal air movement Cardiovascular: No edema, Normal pulses, Regular rate/rhythm, Normal S1 S2 Capillary refill: <2 Seconds Gastrointestinal: Normal bowel sounds, No masses, No rebound, No guarding, Tenderness Musculoskeletal: No contractures, No erythema, No tenderness Integumentary: No significant lesion, No tenderness/swelling, No erythema Neurological: Normal speech, Normal strength at 5/5 x4 extr, Normal tone, Sensation intact - Studies Laboratory Data (last 24 hrs) 01/03/20 15:20: Lipase [id number] H 01/03/20 15:20: PT 16.1 H, INR 1.37 01/03/20 15:20: WBC 5.5, Hgb 14.4, Hct 42.9, Plt Count 188 01/03/20 15:20: Sodium 141, Potassium 3.3 L, BUN 19 H, Creatinine 0.77, Glucose 155 H, Magnesium 2.0, Total Bilirubin 0.8, AST 34, ALT 36, Alkaline Phosphatase 95 <Osman Barreto - Last Filed: 01/04/20 08:42> - Studies Laboratory Data (last 24 hrs) 01/03/20 15:20: Lipase [id number] H 01/03/20 15:20: PT 16.1 H, INR 1.37 01/03/20 15:20: WBC 5.5, Hgb 14.4, Hct 42.9, Plt Count 188 01/03/20 15:20: Sodium 141, Potassium 3.3 L, BUN 19 H, Creatinine 0.77, Glucose 155 H, Magnesium 2.0, Total Bilirubin 0.8, AST 34, ALT 36, Alkaline Phosphatase 95 <Grady Ricardo - Last Filed: 01/04/20 13:05> Assessment & Plan Discharge Plan: Home Plan to discharge in: 48 Hours - Code Status/Comfort Care Code Status Assessed: Yes (Patient is full code) Physician Review Additional Text: Assessment Acute pancreatitis Acalculous cholecystitis Diabetes mellitus type 2 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 Lipase has decreased significantly overnight [place] [id number]. Patient in only mild pain with some nausea. Patient will be assessed by general surgery for possible acalculous cholecystitis. Patient is on triple anticoagulant therapy so she may not be a candidate for surgical intervention today. Will discuss further with General Surgery. Pain medication and nausea medication as needed. Patient placed on antibiotics for possible cholecystitis. Acalculous cholecystitis: Continue as above. Diabetes mellitus type 2: AC H S. Accu-Cheks, sliding scale insulin therapy. 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 Will discuss this with General Surgery. Critical Care: No Time Spent Managing Pts Care (In Minutes): 55 <Osman Barreto - Last Filed: 01/04/20 08:42> Physician Review: Patient Assessed, Agree with Above Assessment and Plan <Grady Ricardo - Last Filed: 01/04/20 13:05>
[2020-01-04] MEDS: INSULIN -REGULAR HUMAN 50 UNIT/0.5 ML ML SQ SCH ×4 (08:49→21:00)
[2020-01-04] MEDS ORDERED: KCL 20 MEQ/100 mL IVPB 20 MEQ/100 ML BAG IV SCH (09:00)
[2020-01-04] MEDS ORDERED: MAGNESIUM SULFATE 1 gm IVPB 1 GM/100 ML BAG IV ONE (09:00)
[2020-01-04] MEDS ORDERED: CEFTRIAXONE 1 GM/NS 50 ML 1 GM/50 ML BAG IV SCH (09:00)
[2020-01-04] MEDS ORDERED: ENOXAPARIN 40 MG/0.4 ML SQ SCH (09:00)
[2020-01-04] MEDS: FENTANYL CITR 100 MCG/2 ML IV PRN (10:49)
[2020-01-04 11:24] LABS: Urine Appearance CLEAR; Urine Bilirubin NEGATIVE (NEG); Urine Blood TRACE (NEG); Urine Color DK YELLOW; Urine Glucose NEGATIVE (NEG); Urine Protein 1+ (NEG); Urine Specific Gravity >=1.030 (1.005-1.030); Urine pH 5.5 (5.0-7.0)
[2020-01-04 11:32] LABS: Urine Microscopic Reflex ORDER UMIC
[2020-01-04 11:38] LABS: Urine Bacteria <20 /HPF (<20); Urine Culture Reflex Order NOT NEEDED; Urine Mucus LIGHT /HPF (NONE SEEN); Urine RBC <5 /HPF (NONE SEEN)
[2020-01-04 16:33] LABS: Magnesium 2.3 mg/dL (1.8-2.4)
[2020-01-04] MEDS ORDERED: ENOXAPARIN 100 MG/ML SYR SQ SCH (21:00)
[2020-01-05] MEDS: FENTANYL CITR 100 MCG/2 ML IV PRN (00:59)
[2020-01-05] MEDS: CEFTRIAXONE/SWI 1gm 1 GM/10 ML SYR IV SCH (01:00)
[2020-01-05] MEDS: NA CHLORIDE 0.9% 1,000 ML with POTASSIUM CL 20 MEQ IV SCH ×8 (04:08→21:08)
[2020-01-05] MEDS: INSULIN -REGULAR HUMAN 50 UNIT/0.5 ML ML SQ SCH ×4 (07:30→21:00)
[2020-01-05] MEDS: RIVAROXABAN 10 MG TABLET PO SCH (08:08)
[2020-01-05] MEDS: CLOPIDOGREL 75 MG TABLET PO SCH (08:08)
[2020-01-05] MEDS: METOPROLOL XL 25 MG TAB PO SCH (08:11)
[2020-01-05] MEDS: PANTOPRAZOLE 40 MG INJ IVP SCH ×2 (08:12→21:06)
[2020-01-05] MEDS: ATORVASTATIN 10 MG TAB PO SCH (08:12)
[2020-01-05] MEDS: NIACINAMIDE 500 MG PO SCH (08:18)
[2020-01-05] MEDS: OMEGA PO SCH ×2 (08:19→21:00)
[2020-01-05] MEDS: EPA PO SCH ×2 (08:19→21:00)
[2020-01-05] MEDS: VIT E ACET PO SCH (08:19)
[2020-01-05] MEDS: UBIDECARENONE PO SCH (08:19)
[2020-01-05] MEDS: DHA PO SCH ×2 (08:19→21:00)
[2020-01-05] MEDS: FISH OIL PO SCH ×2 (08:19→21:00)
--- NOTE | 2020-01-05 08:49 | P.PN ---
Subjective Date of Service: 01/05/20 Primary Care Provider: Ambar Chief Complaint: Epigastric pain Subjective: No new changes <Osman Barreto - Last Filed: 01/05/20 08:46> Date of Service: 01/05/20 <DavionGrady Moris - Last Filed: 01/05/20 11:17> Review of Systems 10-point ROS is otherwise unremarkable Gastrointestinal: Nausea, Abdominal Pain <Osman Barreto - Last Filed: 01/05/20 08:46> Physical Examination - Vital Signs Temperature: 98 F Blood Pressure: 120/60 Pulse: 66 Respirations: 18 Pulse Ox (%): 94 - Physical Exam General: Alert, In no apparent distress HEENT: Atraumatic, PERRLA, EOMI Neck: Supple, JVD not distended Respiratory: Clear to auscultation bilaterally, Normal air movement Cardiovascular: Regular rate/rhythm, Normal S1 S2 Gastrointestinal: Normal bowel sounds, No rebound, No guarding, Tenderness Musculoskeletal: No tenderness Integumentary: No rashes, No tenderness/swelling, No erythema Neurological: Normal speech, Normal tone, Normal affect <Osman Barreto - Last Filed: 01/05/20 08:46> Assessment & Plan Discharge Plan: Home Plan to discharge in: Greater than 2 days - Code Status/Comfort Care Code Status Assessed: Yes (Patient is full code) Physician Review: Patient Assessed, Agree with Above Assessment and Plan Physician Review Additional Text: Assessment Acute pancreatitis Acalculous cholecystitis Diabetes mellitus type 2 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 Patient lipase down significantly to around 1,000. Patient currently taking small sips of water and some ice chips as well as home medications. Pain has improved but still present. Anticipate clinical improvement next 24-48 hr at which time the patient be discharged. Acalculous cholecystitis: Continue as above. Will obtain daily LFTs. Diabetes mellitus type 2: AC H S. Accu-Cheks, sliding scale insulin therapy. 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 Critical Care: No Time Spent Managing Pts Care (In Minutes): 55 <Osman Barreto - Last Filed: 01/05/20 08:46> Physician Review Additional Text: Patient was seen and examined and findings were discussed Agree with the assessment and plan as documented by the BRIANNE <Grady Ricardo - Last Filed: 01/05/20 11:17>
[2020-01-05] MEDS: lisinopriL 5 MG TAB PO SCH (17:26)
[2020-01-05] MEDS: ASPIRIN EC 81 MG TAB PO SCH (21:06)
[2020-01-05] MEDS: HYDROCODONE/APAP 5/325 MG TAB PO PRN (21:10)
[2020-01-06] MEDS: CEFTRIAXONE/SWI 1gm 1 GM/10 ML SYR IV SCH (01:17)
--- NOTE | 2020-01-06 01:33 | PN ---
Date of Progress Note: 01/05/2020 Diagnoses: Acute pancreatitis. Subjective: The patient is doing better. No shortness of breath. No chest pain. Abdomen is little bit better. Review of Systems: Ten points otherwise unremarkable. Physical Examination: General: The patient is awake and alert. No distress. Abdomen: Epigastric tenderness. No rebound. Laboratory Data: Blood work shows lipase coming down to 1634. Assessment: A 74-year-old patient with acute pancreatitis of unknown etiology. The patient is impro ving with numbers coming down. We are going to give her clear liquid diet in the morning and see how she does clinically. HM/MODL Voice ID: [id number] Report ID: [id number]
[2020-01-06] MEDS: NA CHLORIDE 0.9% 1,000 ML with POTASSIUM CL 20 MEQ IV SCH ×6 (03:30→11:35)
[2020-01-06 06:06] LABS: Absolute Lymphocytes (CBC) 0.6 K/uL (0.7-4.9); Basophils % 0.2 % (0-1.3); Hematocrit 35.7 % (36.0-45.0); MPV 9.2 fL (7.6-11.3); RBC Red Blood Cell Count 3.93 M/uL (3.86-4.86)
[2020-01-06 06:20] LABS: ALT/SGPT 49 U/L (12-78); AST/SGOT 26 U/L (15-37); Albumin 2.7 g/dL (3.4-5.0); Alkaline Phosphatase 95 U/L (45-117); BUN Blood Urea Nitrogen 10 mg/dL (7-18); Bicarbonate 19 mmol/L (21-32); Bilirubin Total 0.8 mg/dL (0.2-1.0); Glucose Level 115 mg/dL (74-106); Lipase 277 U/L (73-393); Potassium 4.2 mmol/L (3.5-5.1); Protein, Total 6.5 g/dL (6.4-8.2); Sodium Level 141 mmol/L (136-145)
[2020-01-06] MEDS: INSULIN -REGULAR HUMAN 50 UNIT/0.5 ML ML SQ SCH ×4 (07:30→20:30)
[2020-01-06] MEDS: RIVAROXABAN 10 MG TABLET PO SCH (08:39)
[2020-01-06] MEDS: METOPROLOL XL 25 MG TAB PO SCH (08:39)
[2020-01-06] MEDS: PANTOPRAZOLE 40 MG INJ IVP SCH ×2 (08:39→20:30)
[2020-01-06] MEDS: CLOPIDOGREL 75 MG TABLET PO SCH (08:39)
[2020-01-06] MEDS: ATORVASTATIN 10 MG TAB PO SCH (08:40)
[2020-01-06] MEDS: VIT E ACET PO SCH (08:41)
[2020-01-06] MEDS: OMEGA PO SCH (08:41)
[2020-01-06] MEDS: NIACINAMIDE 500 MG PO SCH (08:41)
[2020-01-06] MEDS: EPA PO SCH (08:41)
[2020-01-06] MEDS: FISH OIL PO SCH (08:41)
[2020-01-06] MEDS: UBIDECARENONE PO SCH (08:41)
[2020-01-06] MEDS: DHA PO SCH (08:41)
--- NOTE | 2020-01-06 09:22 | P.PN ---
Subjective Date of Service: 01/06/20 Primary Care Provider: Ambar Chief Complaint: Epigastric pain Subjective: Improving <EstevanOsman - Last Filed: 01/06/20 09:22> Date of Service: 01/06/20 <Grady Ricardo - Last Filed: 01/06/20 15:22> Review of Systems 10-point ROS is otherwise unremarkable Gastrointestinal: Abdominal Pain <Osman Barreto - Last Filed: 01/06/20 09:22> Physical Examination - Vital Signs Temperature: 98.0 F Blood Pressure: 139/67 Pulse: 69 Respirations: 18 Pulse Ox (%): 97 - Physical Exam General: Alert, In no apparent distress HEENT: Atraumatic, PERRLA, EOMI Neck: Supple, JVD not distended Respiratory: Clear to auscultation bilaterally, Normal air movement Cardiovascular: Regular rate/rhythm, Normal S1 S2 Gastrointestinal: Normal bowel sounds, No rebound, No guarding, Tenderness Musculoskeletal: No tenderness Integumentary: No rashes Neurological: Normal speech, Normal tone, Normal affect Lymphatics: No axilla or inguinal lymphadenopathy - Studies Medications List Reviewed: Yes <Osman Barreto - Last Filed: 01/06/20 09:22> Assessment & Plan Discharge Plan: Home Plan to discharge in: 24 Hours - Code Status/Comfort Care Code Status Assessed: Yes Physician Review: Patient Assessed, Agree with Above Assessment and Plan Physician Review Additional Text: Assessment Acute pancreatitis Acalculous cholecystitis Diabetes mellitus type 2 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 Patient lipase down significantly to around 200. Surgery advance diet to clear liquids today, will see how patient does with this. Pain has improved but still present. Anticipate clinical improvement next 24-48 hr at which time the patient be discharged. Acalculous cholecystitis: Patient's WBC and LFTs are stable. Patient without significant right upper quadrant pain. Will continue to monitor closely. Diabetes mellitus type 2: AC H S. Accu-Cheks, sliding scale insulin therapy. 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 Critical Care: No Time Spent Managing Pts Care (In Minutes): 55 <Osman Barreto - Last Filed: 07/27/20 09:22> Physician Review Additional Text: Patient was seen and examined and findings were discussed Agree with the assessment and plan as documented by the BRIANNE <Grady Ricardo - Last Filed: 01/06/20 15:22>
[2020-01-06] MEDS: HYDROCODONE/APAP 5/325 MG TAB PO PRN (16:24)
[2020-01-06] MEDS: lisinopriL 5 MG TAB PO SCH (16:25)
[2020-01-06] MEDS: ASPIRIN EC 81 MG TAB PO SCH (20:30)
[2020-01-06] MEDS: DOCOSAHEXANOIC AC/EPA 1000 MG PO SCH (20:30)
[2020-01-06 22:32] VITALS: O2SAT 96
[2020-01-07] MEDS: CEFTRIAXONE/SWI 1gm 1 GM/10 ML SYR IV SCH (01:01)
[2020-01-07 05:52] LABS: Absolute Lymphocytes (CBC) 0.5 K/uL (0.7-4.9); Basophils % 0.4 % (0-1.3); Hematocrit 34.3 % (36.0-45.0); Lymphocytes % 7.6 % (15.3-44.8); MPV 8.8 fL (7.6-11.3); RBC Red Blood Cell Count 3.83 M/uL (3.86-4.86)
[2020-01-07 06:11] LABS: ALT/SGPT 40 U/L (12-78); AST/SGOT 18 U/L (15-37); Albumin 2.5 g/dL (3.4-5.0); Alkaline Phosphatase 90 U/L (45-117); BUN Blood Urea Nitrogen 5 mg/dL (7-18); Bicarbonate 22 mmol/L (21-32); Bilirubin Total 0.6 mg/dL (0.2-1.0); Glucose Level 155 mg/dL (74-106); Lipase 88 U/L (73-393); Potassium 3.7 mmol/L (3.5-5.1); Protein, Total 6.2 g/dL (6.4-8.2); Sodium Level 142 mmol/L (136-145)
[2020-01-07] MEDS: INSULIN -REGULAR HUMAN 50 UNIT/0.5 ML ML SQ SCH (07:30)
[2020-01-07] MEDS: DOCOSAHEXANOIC AC/EPA 1000 MG PO SCH (08:43)
[2020-01-07] MEDS: RIVAROXABAN 10 MG TABLET PO SCH (08:43)
[2020-01-07] MEDS: ATORVASTATIN 10 MG TAB PO SCH (08:44)
[2020-01-07] MEDS: CLOPIDOGREL 75 MG TABLET PO SCH (08:45)
[2020-01-07] MEDS: PANTOPRAZOLE 40 MG INJ IVP SCH (08:45)
[2020-01-07] MEDS: UBIDECARENONE PO SCH (08:46)
[2020-01-07] MEDS: METOPROLOL XL 25 MG TAB PO SCH (08:46)
[2020-01-07] MEDS: VIT E ACET PO SCH (08:46)
[2020-01-07 08:53] VITALS: BP 143/70
[2020-01-07] MEDS ORDERED: NIACIN 500 MG SR TAB PO SCH (09:00)
[2020-01-07 09:51] VITALS: TEMP 98.3
--- NOTE | 2020-01-07 10:45 | P.DS ---
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 Patient lipase down significantly to around 200. Surgery advance diet to clear liquids today, will see how patient does with this. Pain has improved but still present. Anticipate clinical improvement next 24-48 hr at which time the patient be discharged. Acalculous cholecystitis: Patient's WBC and LFTs are stable. Patient without significant right upper quadrant pain. Will continue to monitor closely. Diabetes mellitus type 2: AC H S. Accu-Cheks, sliding scale insulin therapy. 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 Hospital Course: 73-year-old female admitted for acute pancreatitis. Abdominal ultrasound showing Thickened gallbladder wall may indicate acalculous cholecystitis or be related to hypoalbuminemia. Patient was evaluated by General surgery and there is no plan for surgical intervention at this time. Patient was started on a clear liquid diet and advanced to soft diet. Patient is tolerating advanced diet. Lipase has trended down and patient's right upper quadrant pain is minimal at this time. Patient is stable can be discharged home. Patient can resume her home medications for her diabetes. Also her anticoagulation therapy. <Gautam Biggs - Last Filed: 01/07/20 10:52> Admission Date: 01/03/20 Discharge Date: 01/08/20 <Grady Ricardo - Last Filed: 01/08/20 16:41> Disposition: ROUTINE DISCHARGE Discharge Condition: GOOD Vital Signs/Physical Exam: Temp Pulse Resp BP Pulse Ox 98.3 F 67 18 143/70 H 96 01/07/20 08:00 01/07/20 08:46 01/07/20 08:00 01/07/20 08:46 01/07/20 08:00 General: Alert, In no apparent distress, Oriented x3 HEENT: Atraumatic, Normocephalic, PERRLA Neck: Supple, No Thyromegaly Respiratory: Clear to auscultation bilaterally, Normal air movement Cardiovascular: No edema, Normal pulses, Normal S1 S2 Capillary refill: <2 Seconds Gastrointestinal: Normal bowel sounds, Soft and benign, Non-distended, Other (Minimal right upper quadrant pain with palpation) Musculoskeletal: No clubbing, No swelling, No contractures, No erythema Integumentary: No rashes, No breakdown, No significant lesion Neurological: Normal gait, Normal speech, Normal strength at 5/5 x4 extr Laboratory Data at Discharge: WBC 6.8 K/uL (4.3-10.9) 01/07/20 05:24 Hgb 11.8 g/dL (12.0-15.0) L 01/07/20 05:24 Hct 34.3 % (36.0-45.0) L 01/07/20 05:24 Plt Count 133 K/uL (152-406) L 01/07/20 05:24 PT 16.1 SECONDS (9.5-12.5) H 01/03/20 15:20 INR 1.37 01/03/20 15:20 Sodium 142 mmol/L (136-145) 01/07/20 05:24 Potassium 3.7 mmol/L (3.5-5.1) 01/07/20 05:24 BUN 5 mg/dL (7-18) L 01/07/20 05:24 Creatinine 0.54 mg/dL (0.55-1.3) L 01/07/20 05:24 Glucose 155 mg/dL (74-106) H 01/07/20 05:24 Phosphorus 2.8 mg/dL (2.5-4.9) 01/04/20 05:06 Magnesium 2.3 mg/dL (1.8-2.4) D 01/04/20 16:08 Total Bilirubin 0.6 mg/dL (0.2-1.0) 01/07/20 05:24 AST 18 U/L (15-37) 01/07/20 05:24 ALT 40 U/L (12-78) 01/07/20 05:24 Alkaline Phosphatase 90 U/L (45-117) 01/07/20 05:24 Triglycerides 75 mg/dL (<150) 01/04/20 05:06 Cholesterol 177 mg/dL (<200) 01/04/20 05:06 HDL Cholesterol 59 mg/dL (40-60) 01/04/20 05:06 Cholesterol/HDL Ratio 3.00 01/04/20 05:06 Lipase 88 U/L (73-393) 01/07/20 05:24 <Gautam Biggs - Last Filed: 01/07/20 10:52> Vital Signs/Physical Exam: Temp Pulse Resp BP Pulse Ox 98.3 F 67 18 143/70 H 96 01/07/20 08:00 01/07/20 08:46 01/07/20 08:00 01/07/20 08:46 01/07/20 08:00 Laboratory Data at Discharge: WBC 6.8 K/uL (4.3-10.9) 01/07/20 05:24 Hgb 11.8 g/dL (12.0-15.0) L 01/07/20 05:24 Hct 34.3 % (36.0-45.0) L 01/07/20 05:24 Plt Count 133 K/uL (152-406) L 01/07/20 05:24 PT 16.1 SECONDS (9.5-12.5) H 01/03/20 15:20 INR 1.37 01/03/20 15:20 Sodium 142 mmol/L (136-145) 01/07/20 05:24 Potassium 3.7 mmol/L (3.5-5.1) 01/07/20 05:24 BUN 5 mg/dL (7-18) L 01/07/20 05:24 Creatinine 0.54 mg/dL (0.55-1.3) L 01/07/20 05:24 Glucose 155 mg/dL (74-106) H 01/07/20 05:24 Phosphorus 2.8 mg/dL (2.5-4.9) 01/04/20 05:06 Magnesium 2.3 mg/dL (1.8-2.4) D 01/04/20 16:08 Total Bilirubin 0.6 mg/dL (0.2-1.0) 01/07/20 05:24 AST 18 U/L (15-37) 01/07/20 05:24 ALT 40 U/L (12-78) 01/07/20 05:24 Alkaline Phosphatase 90 U/L (45-117) 01/07/20 05:24 Triglycerides 75 mg/dL (<150) 01/04/20 05:06 Cholesterol 177 mg/dL (<200) 01/04/20 05:06 HDL Cholesterol 59 mg/dL (40-60) 01/04/20 05:06 Cholesterol/HDL Ratio 3.00 01/04/20 05:06 Lipase 88 U/L (73-393) 01/07/20 05:24 <Grady Ricardo - Last Filed: 01/08/20 16:41> Diet: ADA Activity: Ad larry Time spent managing pt's care (in minutes): 50 <Gautam Biggs - Last Filed: 01/07/20 10:52> Physician Review: Patient Assessed, Agree with Above Assessment and Plan (Patient was seen and examined and findings were discussed Agree with the assessment and plan as documented by the BRIANNE) <Grady Ricardo - Last Filed: 01/08/20 16:41> Home Medications: Aspirin [Aspirin EC 81 MG] 81 mg PO BEDTIME 02/27/17 Clopidogrel Bisulfate [Plavix*] 75 mg PO DAILY 02/27/17 Lisinopril [Zestril] 5 mg PO DAILY AFTER SUPPER 02/27/17 Metformin HCl [Glucophage*] 500 mg PO BID 02/27/17 Niacinamide [Niacin] 500 mg PO DAILY 02/27/17 Pravastatin Sodium 20 mg PO DAILY 02/27/17 Furosemide [Lasix*] 20 mg PO DAILY PRN 01/04/20 Metoprolol Succinate [Toprol Xl*] 1 tab PO DAILY 01/04/20 [place]-3/Dha/Epa/Fish Oil [Fish Oil 1,360 mg Softgel] 1,300 mg PO BID 01/04/20 Rivaroxaban [Xarelto*] 20 mg PO DAILY 01/04/20 Ubidecarenone/Vit E Acet [Co Q-10 100 mg Softgel] 1 cap PO DAILY 01/04/20 Ubidecarenone/Vit E Acet [Co Q-10 100 mg Softgel] 1 cap PO DAILY 01/07/20
== END 2020-01-07 12:13 | disposition home or self-care (01) | DRG 440 ==
LOC: ER 15:06 → ERHOLD 21:10 → 2ND 23:23
PROVIDERS: ADMIT Internal Medicine; ATTEND Family Medicine
DX: K85.90 Acute pancreatitis without necrosis or infection, unspecified (principal); E11.65 Type 2 diabetes mellitus with hyperglycemia; I25.10 Atherosclerotic heart disease of native coronary artery without angina pectoris; I10 Essential (primary) hypertension; K81.9 Cholecystitis, unspecified; E88.09 Other disorders of plasma-protein metabolism, not elsewhere classified; Z79.82 Long term (current) use of aspirin; Z79.02 Long term (current) use of antithrombotics/antiplatelets; Z79.84 Long term (current) use of oral hypoglycemic drugs; Z79.891 Long term (current) use of opiate analgesic; Z79.899 Other long term (current) drug therapy; Z95.5 Presence of coronary angioplasty implant and graft; Z96.652 Presence of left artificial knee joint; Z86.711 Personal history of pulmonary embolism; Z85.048 Personal history of other malignant neoplasm of rectum, rectosigmoid junction, and anus; Z90.710 Acquired absence of both cervix and uterus; Z88.5 Allergy status to narcotic agent; Z20.828 Contact with and (suspected) exposure to other viral communicable diseases; R06.02 Shortness of breath
CPT/HCPCS: 36415; 71045; 71275; 74175; 76705; 80048; 80053; 80061; 80076; 81003; 81015; 82947; 83690; 83735; 83880; 84100; 84132; 84443; 84484; 85025; 85610; 93005; 96365; 96366; 96375; 97162; 99285; C9113; J0696; J1650; J2550; J3010; J3475; J3480; J7030; Q9967; U0002

== ENCOUNTER 2024-05-14 15:03 | Emergency (ER) | payer OTHER, BC ==
--- OUTSIDE RECORDS SUMMARY | 2024-05-14 15:06 | XMS REPORT | Clinical Summary ---
Author Name Unknown Organization [facility] Address [address] [place] [address] Care Team Providers Care Cloth Trimmer Hand Name Role Phone René Garner MD Primary Care Provider + [phone] Levar Phillips MD Unavailable [phone] Yvan Kitchen MD Unavailable René Garner MD Unavailable [phone] Agueda Melchor NP Unavailable [email or web address] Christie Mcdonald MD Unavailable Papito Clarke MD Unavailable + [phone] Stoney Barker MD Unavailable Jorge Camarena MD Unavailable [phone] Michelle Villalpando MD Unavailable [phone] Wilder Chakraborty Unavailable Christie Mcdonald MD Unavailable Carina Gillis [facility] Unavailable [phone] Heena Wilks MD Unavailable Epifanio Hinojosa MD Unavailable [phone] Leonard De La Fuente MD Unavailable Hector Castillo MD Unavailable [phone] Venus Clark MD Unavailable Immanuel Francis MD Unavailable [phone] Cecy Lopes MD Unavailable Allergies Active Allergy Reactions Criticality Noted Date Comments Atorvastatin 02/02/2018 Other reaction(s): Info Not Available Codeine 02/02/2018 Other reaction(s): Info Not Available Codeine Sulfate High 06/29/2015 Headache, Nausea/Vomiting Pentazocine Lactate GI Intolerance Low 08/06/2018 Medications * This document contains information received from the source organization and may not represent a complete record from that organization. lisinopril (PRINIVIL,ZESTRIL) 5 mg tablet Take 1 tablet (5 mg) by mouth daily. Active niacin 500 mg tablet Take 1 tablet (500 mg) by mouth daily. Active metoprolol tartrate (LOPRESSOR) 25 mg tablet Take 1 tablet (25 mg) by mouth daily. Active clopidogrel (PLAVIX) 75 mg tablet Take 1 tablet (75 mg) by mouth daily. 02/26/20 22 Active Xarelto 10 mg tablet Take 1 tablet (10 mg) by mouth daily. 02/20/20 22 Active aspirin 81 mg chewable tablet Chew 1 tablet (81 mg) daily. Active Repatha Syringe 140 mg/mL syrg Inject 1 mL under the skin every 14 (fourteen) days. 09/27/19 23 Active Synthroid 88 mcg tabletIndications: Follicular thyroid carcinoma,Postoper ative hypothyroidism TAKE 1 TABLET BY MOUTH EVERY DAY 90 tablet 11/24/19 24 Active Synthroid 88 mcg tabletIndications: Follicular thyroid carcinoma,Postoper ative hypothyroidism Take 1 tablet (88 mcg) by mouth daily. 90 tablet 3 11/03/19 23 024 Discontinued Active Problems Problem Noted Date Diagnosed Date Postoperative hypothyroidism 03/14/2022 Follicular thyroid carcinoma 07/09/2021 Cancer Staging:Clinical stage from 09/06/2021:Stage II(cT3a, cNX, cM0, Age at diagnosis: >= 55 years) - Signed by Talia Alvarenga PA on 09/21/2021 Overview (07/09/2021): Added automatically from request for surgery [id number] Screening for malignant neoplasm of colon 2020 Overview (06/16/2020): Added automatically from request for surgery [id number] Type 1 diabetes mellitus 05/25/2020 Chronic venous insufficiency 05/16/2019 Lipedema 05/16/2019 Lymphedema, not elsewhere classified 05/16/2019 Abnormality of gait 05/16/2019 Generalized muscle weakness 05/16/2019 Parkinson's disease 12/05/2018 Deep vein thrombosis of right lower extremity Nontoxic multinodular goiter 01/15/2016 Fecal incontinence with fecal urgency 01/06/2016 Pulmonary embolism 09/25/2015 Primary malignant neoplasm of anus 09/08/2015 Cancer Staging:Clinical:Stage II(T2, N0, M0) - Signed by Andreas Guy II, MD on 12/05/2018 Obesity 09/08/2015 Osteoporosis Hyperlipidemia Diverticular disease Diabetes mellitus Overview (07/04/2016): PRE DIBETES Coronary arteriosclerosis Cancer of anal canal Cancer Staging:Clinical:Stage IIA(cT2, cN0, cM0) - Signed by Andreas Guy II, MD on 05/21/2019 Encounters Date Type Department Care Team Description 11/24/2023 [facility] [address] [facility] [address] [facility], 6th [place] [address] Cecy Lopes MD Follicular thyroid carcinoma; Postoperative hypothyroidism after 05/15/2023 Surgical History Surgery Date Site/Laterality Comments CARPAL TUNNEL RELEASE Bilateral RHINOPLASTY CORONARY ANGIOPLASTY WITH STENT PLACEMENT 06/12/2008 - 06/11/2009 Bilateral 4 stents placed HYSTERECTOMY ovaries in situ PLACEMENT DENTAL IMPLANT Bilateral Full mouth KNEE ARTHROPLASTY 02/28/2017 Left KS SIGMOIDOSCOPY FLX W/BIOPSY SINGLE/MULTIPLE 07/17/2017 Anus/N/A Procedure: FLEXIBLE SIGMOIDOSCOPY WITH BIOPSY; Surgeon: Joo Diaz MD; Location: MAIN ENDOSCOPY; Service: GASTROENTEROLOGY TOTAL KNEE ARTHROPLASTY 09/10/2017 - 10/09/2017 Left KS SIGMOIDOSCOPY FLX DX W/COLLJ SPEC BR/WA IF PFRMD 08/06/2018 - 08/07/2018 Anus/N/A Procedure: DIAGNOSTIC FLEXIBLE SIGMOIDOSCOPY, WITH OR WITHOUT COLLECTION OF SPECIMEN(S) BY BRUSHING OR WASHING; Surgeon: Fabiana Hough MD; Location: MAIN ENDOSCOPY; Service: GASTROENTEROLOGY KS COLONOSCOPY FLX DX W/COLLJ SPEC WHEN PFRMD 08/24/2020 N/A Procedure: DIAGNOSTIC FLEXIBLE COLONOSCOPY PROXIMAL TO SPLENIC FLEXURE; Surgeon: Braulio Barajas MD; Location: MAIN ENDOSCOPY; Service: GASTROENTEROLOGY KS TOTAL THYROID LOBECTOMY UNI W/WO ISTHMUSECTOMY 09/06/2021 Neck/Right Procedure: UNILATERAL COMPLETE THYROID LOBECTOMY; Surgeon: Leonard De La Fuente MD; Location: MAIN OR; Service: SURG ONC - ENDOCRINE Medical History Medical History Date Comments Chronic diarrhea Diabetes mellitus PRE DIBETES Thyroid nodule 10/22/2015 Fecal incontinence with fecal urgency 01/06/2016 Cancer of anal canal Diverticular disease Hyperlipidemia Osteoporosis Hypertension Coronary arteriosclerosis Resolu te Stent 2011 Stent in anterior descending branch of left coronary artery 2011 resolute Parkinson's disease Pulmonary embolism 2017 Family History Medical History Relation Name Comments -Breast cancer Mother Relation Name Status Comments Mother Social History Tobacco Use Types Packs/Day Years Used Date Smoking Tobacco: Never Smokeless Tobacco: Never Alcohol Use Standard Drinks/Week Comments Yes 0 (1 standard drink = 0.6 oz pur e alcohol) social Education Answer Date Recorded What is the highest level of school you have completed or the highest degree you have received? Some college, no degree 08/30/2021 Comments No Sex and Gender Information Value Date Recorded Sex Assigned at Not on file Legal Sex Female 5:50 PM INPATIENT PHARMACIST Gender Identity Female 09/09/2020 10:04 PM CDT Sexual Orientation Not on file Obstetrics History Para Term AB IAB SAB Ectopic Multiple Livin g Live Births 2 2 2 Date Outcome GA Total Labor Labor/2nd/3rd Weight Sex Type Anes PTL Niki A1 A5 Name Clin Para Para Comments Menarche at 13. First parity at 22. Surgical amenorrhea at 36. Had a hysterectomy due to heavy periods. No Monopausal symptoms No HRT Plan of Treatment Health Maintenance Due Date Last Done Comments Pneumococcal Vaccine: 65+ Years (1 of 2 - PCV) 953 COVID-19 Vaccine ( - 2023- season) 2024 Influenza Vaccine (#1) 2024 Medical Devices Implanted Type Area Dish Maker Device Identifier Shelf Expiration Date Model / Serial / Lot Stent-07/17/2011 Implanted:2011 (Quantity not on file) Stent Description:Resolute LAD raji nt 2011 Insurance MEDICARE PART A AND B [facility] MEDICARE SUPP-SECONDARY ONLY MEDICARE PART A AND B [facility] MEDICARE SUPP-SECONDARY ONLY MEDICARE PART A AND B [facility] MEDICARE SUPP-SECONDARY ONLY Advance Directives * Full Code (Latest Code Status on File) Date Activated Date Inactivated Comments 09/06/2021 4:50 PM 09/07/2021 7:04 PM Care Teams Cloth Trimmer Hand Relationship Specialty Start [place] [address] [place] [id number] [email or web address] PCP - General 08/12/15 Levar Phillips MD [address] [place] [phone] PCP - External Referring 04/15/15 Yvan Kitchen MD [address] [phone] [email or web address] PCP - External Follow Up B 04/15/15 Christie Mcdonald MD [address] [place] [address] [email or web address] PCP - External Follow Up A Gastrointestinal Medical Oncology 04/11/17 René Garner MD [address] [place] [phone] [email or web address] Physician 08/19/15 Agueda Mlechor NP [email or web address] Nurse Practitioner 08/19/15 Christie Mcdonald MD [address] [phone] [email or web address] Physician 08/19/15 Papito Clarke MD [address] [place] [phone] [email or web address] Physician 08/19/15 Stoney Barker MD [address] [place] [phone] [email or web address] Physician 08/19/15 Jorge Camarena MD [address] [place] [phone] [email or web address] Physician 08/19/15 Michelle Villalpando MD [address] [place] [phone] [email or web address] Physician 08/19/15 Wilder Chakraborty PA [address] [place], [place] [phone] [email or web address] Physician Luggage Attendant 08/19/[address] [facility] [employer] [address] [place] [phone] [email or web address] Speech Language Pathologist Speech Pathology 12/15/22 Heena Wilks MD [address] [place] [phone] [email or web address] Consulting Physician Physical Medicine and Rehabilitation 05/07/19 Epifanio Hinojosa MD [address] [place] [phone] [email or web address] Consulting Physician Internal Medicine 08/30/21 Leonard De La Fuente MD [address] [place] [phone] [email or web address] Consulting Physician Surgical Oncology 09/16/20 Hector Castillo MD [address] [place] [address] [phone] [email or web address] Consulting Physician Hematology and Oncology 12/31/18 Venus Clark MD [address] [place] [phone] [email or web address] Consulting Physician Endocrinology 10/22/15 Immanuel Francis MD [address] [place] [phone] [email or web address] Consulting Physician Colorectal Surgery 01/01/16 Cecy Lopes MD [address] [place] [address] [phone] [email or web address] Consulting Physician Endocrinology 09/10/20
--- NOTE | 2024-05-14 15:31 | ER ---
Nurse's Notes [facility] Name: Mona Camarillo Age: 78 yrs Sex: Female : 1945 Arrival Date: 05/14/2024 Time: 15:03 Bed 10 Private MD: Diagnosis: Edema of right lower eyelid;Edema of right upper eyelid Presentation: 05/14 15:10 Chief complaint: Patient states: right eye swelling that started today around 0800. kc6 Coronavirus screen: At this time, the client does not indicate any symptoms associated with coronavirus-19. Ebola Screen: No symptoms or risks identified at this time. Initial Sepsis Screen: Does the patient meet any 2 criteria? No. Patient's initial sepsis screen is negative. Does the patient have a suspected source of infection? No. Patient's initial sepsis screen is negative. Risk Assessment: Do you want to hurt yourself or someone else? Patient reports no desire to harm self or others. Onset of symptoms was May 14, 2024. 15:10 Method Of Arrival: Ambulatory kc6 15:10 Acuity: SIDNEY 4 kc6 Historical: - Allergies: 15:11 Codeine; kc6 - PMHx: 15:11 Cancer; Parkinson's disease; Diabetes mellitus; kc6 - PSHx: 15:11 section; hysterectomy; Arthroplasty of knee; kc6 - Immunization history:: Adult Immunizations up to date. - Infectious Disease History:: Denies. - Social history:: Smoking status: Patient denies any tobacco usage or history of. Screenin:49 [facility] ED Fall Risk Assessment (Adult) History of falling in the last 3 months, jb4 including since admission No falls in past 3 months (0 pts) Confusion or Disorientation No (0 pts) Intoxicated or Sedated No (0 pts) Impaired Gait No (0 pts) Mobility Assist Device Used No (0 pt) Altered Elimination No (0 pt) Score/Fall Risk Level 0 - 2 = Low Risk Oriented to surroundings, Maintained a safe environment. Abuse screen: Denies threats or abuse. Nutritional screening: No deficits noted. Tuberculosis screening: No symptoms or risk factors identified. Assessment: 15:49 General: Appears in no apparent distress. comfortable, Behavior is calm, cooperative, jb4 appropriate for age. Pain: Denies pain. Neuro: Level of Consciousness is awake, alert, obeys commands, Oriented to person, place, time, situation. Cardiovascular: Patient's skin is warm and dry. Respiratory: Airway is patent Respiratory effort is even, unlabored, Respiratory pattern is regular, symmetrical. EENT: Swelling noted to the upper and lower right eyelid.. Derm: Skin is intact, Skin is pink, warm \T\ dry. Musculoskeletal: Circulation, motion, and sensation intact. Range of motion: intact in all extremities. Vital Signs: 15:10 BP 131 / 97; Pulse 75; Resp 17 S; Pulse Ox 100% on R/A; Weight 62.14 kg (R); Height 5 kc6 ft. 1 in. (R); Pain 0/10; 15:10 Body Mass Index 25.89 (62.14 kg, 154.94 cm) kc6 15:10 Pain Scale: Adult kc6 ED Course: 15:08 Patient arrived in ED. ra3 15:11 Triage completed. kc6 15:11 Arm band placed on. kc6 15:13 Jennifer [facility]-C [facility]. kb 15:13 Marcello Hernandes MD is Attending Physician. kb 15:49 Patient has correct armband on for positive identification. Bed in low position. Call jb4 light in reach. Side rails up X 1. Provided Education on: plan of care. 15:49 No provider procedures requiring assistance completed. Patient did not have IV access jb4 during this emergency room visit. Administered Medications: 15:41 Drug: MethylPREDNISolone Sodium Succinate IM 125 mg IM once Route: IM; Site: left jb4 gluteus; 15:42 Follow up: Response: Medication administered at discharge. jb4 15:41 Drug: diphenhydrAMINE PO 12.5 mg PO once Route: PO; jb4 15:42 Follow up: Response: Medication administered at discharge. jb4 Medication: 15:49 VIS not applicable for this client. jb4 Outcome: 15:31 Discharge ordered by . kb 15:49 Discharged to home ambulatory, with family, jb4 15:49 Condition: stable 15:49 Discharge instructions given to patient, Instructed on discharge instructions, follow up and referral plans. Demonstrated understanding of instructions, follow-up care, 15:51 Patient left the ED. jb4 Signatures: Jennifer Rodriguez FNP-C FNP-James Gonzáles RN RN jb4 Reina Omer, RN RN kc6 Jacki Lafleur ra3 Corrections: (The following items were deleted from the chart) 15:13 15:11 PMHx: Hypertension; kc6 kc6
--- NOTE | 2024-05-14 15:31 | EDPHYS ---
Physician Documentation [facility] Name: Mona Camarillo Age: 78 yrs Sex: Female : 1945 Arrival Date: 05/14/2024 Time: 15:03 Bed 10 Private MD: ED Physician Marcello Hernandes HPI: 05/14 15:27 This 78 yrs old Female presents to ER via Ambulatory with complaints of Eye Swelling - kb Right. 15:27 Pt is a 78 year old female who presents for swelling to upper and lower right eyelid kb that started this morning. States she has had watery eyes once or twice a day for the last week. Denies fever, visual deficits. . Historical: - Allergies: 15:11 Codeine; kc6 - PMHx: 15:11 Cancer; Parkinson's disease; Diabetes mellitus; kc6 - PSHx: 15:11 section; hysterectomy; Arthroplasty of knee; kc6 - Immunization history:: Adult Immunizations up to date. - Infectious Disease History:: Denies. - Social history:: Smoking status: Patient denies any tobacco usage or history of. ROS: 15:21 Constitutional: As per HPI kb Exam: 15:21 Constitutional: This is a well developed, well nourished patient who is awake, alert, kb and in no acute distress. Head/Face: Normocephalic, atraumatic. Cardiovascular: Regular rate Respiratory: Respirations even and unlabored. No increased work of breathing. Talking in full sentences Skin: Warm, dry with normal turgor. Normal color. MS/ Extremity: Pulses equal, no cyanosis. Neurovascular intact. Full, normal range of motion. Neuro: Awake and alert, GCS 15, oriented to person, place, time, and situation. 15:21 Eyes: Periorbital structures: swelling, that is moderate, on the right upper eyelid and right lower eyelid, Pupils: equal, round, and reactive to light and accomodation, Extraocular movements: intact throughout, Conjunctiva: normal, Vital Signs: 15:10 BP 131 / 97; Pulse 75; Resp 17 S; Pulse Ox 100% on R/A; Weight 62.14 kg (R); Height 5 kc6 ft. 1 in. (R); Pain 0/10; 15:10 Body Mass Index 25.89 (62.14 kg, 154.94 cm) kc6 15:10 Pain Scale: Adult kc6 MDM: 15:14 Medical Screening Exam initiated kb 15:22 Data reviewed: vital signs, nurses notes. kb 15:28 Differential diagnosis: cellulitis, allergic reaction. Historians other than the kb Patient: Spouse/Significant Other: spouse. Counseling: I had a detailed discussion with the patient and/or guardian regarding the historical points, exam findings, and any diagnostic results supporting the discharge/admit diagnosis, the need for outpatient follow up, a family practitioner, to return to the emergency department if symptoms worsen or persist or if there are any questions or concerns that arise at home. ED course: No erythema, warmth, induration. Pt educated on return precautions. Verbal understanding received. States she only came in because her daughter told her the swelling could be a sign of a stroke. . Administered Medications: 15:41 Drug: MethylPREDNISolone Sodium Succinate IM 125 mg IM once Route: IM; Site: left jb4 gluteus; 15:42 Follow up: Response: Medication administered at discharge. 4 15:41 Drug: diphenhydrAMINE PO 12.5 mg PO once Route: PO; jb4 15:42 Follow up: Response: Medication administered at discharge. jb4 Disposition Summary: 05/14/24 15:31 Discharge Ordered Notes: Location: Home kb Condition: Stable kb Diagnosis - Edema of right lower eyelid kb - Edema of right upper eyelid kb Followup: kb - With: Emergency Department - When: As needed - Reason: Worsening of condition Followup: kb - With: Private Physician - When: 2 - 3 days - Reason: Recheck today's complaints, Continuance of care, Re-evaluation by your physician Discharge Instructions: - Discharge Summary Sheet kb - Allergies, Adult, Raow-se-Uxme kb Forms: - Medication Reconciliation Form kb - Antibiotic Education kb - Prescription Opioid Use kb - Patient Portal Instructions kb - Leadership Thank You Letter kb Signatures: Jennifer Rodriguez FNP-C FNP-James Gonzáles RN RN jb4 Reina Omer RN RN kc6 Corrections: (The following items were deleted from the chart) 15:13 15:11 PMHx: Hypertension; kc6 kc6
[2024-05-14] MEDS ORDERED: DIPHENHYDRAMINE 12.5MG/5ML LIQ ONE (15:35)
[2024-05-14] MEDS ORDERED: METHYLPREDNISOLONE 125 MG INJ ONE (15:35)
[2024-05-14 19:55] VITALS: BP 131/97; O2SAT 100
== END 2024-05-14 15:51 | disposition home or self-care (01) ==
LOC: ER 15:03
DX: H02.842 Edema of right lower eyelid (principal); H02.841 Edema of right upper eyelid
CPT/HCPCS: 96372; 99284; Q0163; J2919